=== PATIENT | female | born 1955 | race Caucasian/White ===

== ENCOUNTER 2021-02-24 12:37 | Emergency (ER) | payer OTHER ==
--- NOTE | 2021-02-24 15:07 | RAD REPORT ---
EXAM DESCRIPTION: RAD - Knee Left 3 View - 02/24/2021 3:01 pm CLINICAL HISTORY: PAIN, fall, laceration to anterior left knee COMPARISON: No comparisons FINDINGS: No fracture, dislocation or periosteal reaction.No joint effusion seen. No joint space selvin rowing. Numerous calcifications are present along the lateral margin of the joint line and tibial andie teau. These are unrelated to the current event and likely from old injury. Provided history indicates and anterior soft tissue injury. There are prominent soft tissues anterior to the patella and patell a tendon. No foreign body in the soft tissues. IMPRESSION: Negative left knee for acute finding. Clinical concerns for internal derangement or occult bony injury could be further assessed with MR jyothi alvarado.
[2021-02-24] MEDS ORDERED: LIDOCAINE 1% W/EPI 1:100,000 MDV 20 ML VIAL ONE ×2 (15:19→15:31)
[2021-02-24] MEDS ORDERED: TETANUS & DIPHTHERIA TOX,ADULT 0.5 ML VIAL ONE (15:19)
--- NOTE | 2021-02-24 15:59 | EDPHYS ---
Physician Documentation [facility] Name: Babita Connor Age: 65 yrs Sex: Female : 1955 Arrival Date: 02/24/2021 Time: 12:41 Bed 12 Private MD: Gregory Prakash B ED Physician Paolo Pineda HPI: 02/24 15:00 This 65 yrs old Female presents to ER via Ambulatory with complaints of Fall cp Injury. 15:00 Details of fall: The patient fell from an upright position, while walking, and struck a cp concrete surface. Onset: The symptoms/episode began/occurred just prior to arrival. Associated injuries: The patient sustained injury to the head, contusion, anterior aspect left knee, abrasion, laceration. Severity of symptoms: in the emergency department the symptoms are unchanged, despite home interventions. Patient reports trip and fall while walking causing injury to lower lip and left knee. Patient denies LOC. Historical: - Allergies: 12:49 Sulfa (Sulfonamide Antibiotics); tw2 - Immunization history:: Client reports receiving the 2nd dose of the Covid vaccine, Last tetanus immunization: < 5 years ago 03/2017. - Social history:: Smoking status: . ROS: 15:05 MS/extremity: Positive for abrasion, laceration, pain, swelling, tenderness, of the cp anterior aspect left knee, Negative for decreased range of motion, deformity. 15:05 Constitutional: Negative for body aches, chills, fever. cp 15:05 Neck: Negative for pain with movement, pain at rest, stiffness. 15:05 Cardiovascular: Negative for chest pain. 15:05 Respiratory: Negative for cough, shortness of breath. 15:05 Abdomen/GI: Negative for abdominal pain, nausea, vomiting, diarrhea. 15:05 Back: Negative for pain at rest, pain with movement. 15:05 Skin: Positive for ecchymosis, swelling, of the lower lip. 15:05 Neuro: Negative for altered mental status, headache, loss of consciousness, syncope, weakness. 15:05 All other systems are negative. Exam: 15:10 Constitutional: The patient appears in no acute distress, alert, awake, cp non-diaphoretic, non-toxic, well developed, well nourished. 15:10 Head/face: Noted is ecchymosis, that is mild, of the lower lip, swelling, that is cp mild, tenderness, that is mild, Sinus tenderness, is not appreciated. 15:10 Eyes: Periorbital structures: appear normal, Pupils: equal, round, and reactive to light and accomodation, Extraocular movements: intact throughout, Conjunctiva: normal, no exudate, no injection, Sclera: no appreciated abnormality, Lids and lashes: appear normal, bilaterally. 15:10 ENT: External ear(s): are unremarkable, Nose: is normal, Posterior pharynx: Airway: no evidence of obstruction, patent. 15:10 Neck: C-spine: vertebral tenderness, is not appreciated, crepitus, is not appreciated, ROM/movement: is normal, is supple, without pain, no range of motions limitations. 15:10 Chest/axilla: Inspection: normal. 15:10 Cardiovascular: Rate: normal. 15:10 Respiratory: the patient does not display signs of respiratory distress, Respirations: normal, no use of accessory muscles, no retractions. 15:10 Abdomen/GI: Inspection: abdomen appears normal. 15:10 Back: pain, is absent, ROM is normal. 15:10 Musculoskeletal/extremity: Extremities: grossly normal except: noted in the anterior aspect left knee: abrasion, laceration, pain, swelling, tenderness, There is no evidence of decreased ROM, deformity, ROM: full passive range of motion, in the left knee. 15:10 Neuro: Orientation: to person, place \T\ time. Mentation: is normal, Cerebellar function: is grossly normal, Motor: moves all fours, strength is normal, Sensation: is normal, Gait: is steady, at a normal pace, without difficulty. Vital Signs: 12:48 BP 108 / 65; Pulse 66; Resp 17; Temp 97.9(TE); Pulse Ox 100% on R/A; Weight 54.43 kg tw2 (R); Laceration: 15:56 Wound Repair of 3cm ( 1.2in ) subcutaneous laceration to anterior aspect left knee. cp Linear shaped.. Skin/tissue flap noted.. Distal neuro/vascular/tendon intact. Anesthesia: Wound infiltrated with 8 mls of 1% lidocaine w/ Epi. Wound prep: Moderate cleansing by me, Wound irrigation by me. Skin closed with 5 4-0 Prolene using interrupted sutures and sterile technique. Dressed with Bacitracin. Patient tolerated well. MDM: 14:58 Patient medically screened. [facility] 15:00 Differential diagnosis: closed head injury, contusion, fracture, laceration, multiple cp trauma. 15:58 Data reviewed: vital signs, nurses notes, radiologic studies, plain films. Test cp interpretation: by ED physician or midlevel provider: plain radiologic studies. Response to treatment: the patient's symptoms have markedly improved after treatment, and as a result, I will discharge patient. 02/24 14:03 Order name: XRAY Knee LEFT 3 view; Complete Time: 15:18 cp 02/24 14:03 Order name: Dressing - Wound; Complete Time: 15:31 cp 02/24 14:03 Order name: Gloves, Sterile; Complete Time: 15:32 cp 02/24 14:03 Order name: Setup Suture Tray; Complete Time: 15:32 cp 02/24 15:56 Order name: Dressing - Wound; Complete Time: 16:06 cp Administered Medications: 15:00 Drug: Tetanus-Diphtheria Toxoid Adult 0.5 ml {Supervisor Modern Languages: [email or web address]. Exp: tw2 09/30/2022. Lot #: [id number]. } Route: IM; Site: right deltoid; 19:20 Follow up: Response: No adverse reaction iw 15:32 Drug: Lidocaine-Epinephrine -1%: (1:100,000) 10 ml {Note: administered by BEVERLY Medrano} tr6 Volume: 20 ml; Route: Infiltration; Disposition: 16:05 Chart complete. cp Disposition Summary: 02/24/21 15:59 Discharge Ordered Location: Home cp Problem: new cp Symptoms: have improved cp Condition: Stable cp Diagnosis - Laceration without foreign body of knee - left cp Followup: cp - With: Private Physician - When: 7 - 10 days - Reason: Staple/Suture removal Discharge Instructions: - Discharge Summary Sheet cp - Laceration Care, Adult cp Forms: - Medication Reconciliation Form cp - Thank You Letter cp - Antibiotic Education cp - Prescription Opioid Use cp Prescriptions: - Cephalexin 500 mg Oral Capsule - take 1 capsule by ORAL route every 8 hours for 10 days; 30 capsule; Refills: 0, cp Product Selection Permitted Addendum: 02/27/2021 06:46 Co-signature as Attending Physician, Paolo Pineda MD I agree with the assessment and c baumann plan of care. Signatures: Dispatcher [employer] Paolo Perez MD MD cha Page, Corey, PA PA cp Wise, Tara RN RN tw2 Paola Alcaraz RN RN tr6 Chacha Santamaria RN iw
--- NOTE | 2021-02-24 15:59 | ER ---
Nurse's Notes [facility] Name: Babita Connor Age: 65 yrs Sex: Female : 1955 Arrival Date: 02/24/2021 Time: 12:41 Bed 12 Private MD: Gregory Prakash B Diagnosis: Laceration without foreign body of knee-left Presentation: 02/24 12:48 Chief complaint: Patient states: i tripped and fell about 1130 over a cement block. i tw2 hit my LEFT knee and my face. the left side of my lip is bleeding and my left knee might need stitches. pt denies LOC. Coronavirus screen: At this time, the client does not indicate any symptoms associated with coronavirus-19. Ebola Screen: Patient denies travel to an Ebola-affected area in the 21 days before illness onset. Initial Sepsis Screen: Does the patient meet any 2 criteria? No. Patient's initial sepsis screen is negative. Does the patient have a suspected source of infection? No. Patient's initial sepsis screen is negative. Risk Assessment: Do you want to hurt yourself or someone else? Patient reports no desire to harm self or others. Onset of symptoms was February 24, 2021. 12:48 Method Of Arrival: Ambulatory tw2 12:48 Acuity: NAYANA 4 tw2 12:52 Note pt is ambulatory. has proof of last Tetanus 03/2017. tw2 Triage Assessment: 12:50 General: Appears in no apparent distress. slender, well groomed, Behavior is calm, tw2 cooperative, appropriate for age. Pain: Complains of pain in left knee. Injury Description: Laceration sustained to left knee is clean, jagged, 0.5 to 2.5 cm long, small amount of bleeding noted, secure with non adherent dressing, gauze and secured with coban. was sustained 30-60 minutes ago. a small amount of bleeding noted at this time. Historical: - Allergies: 12:49 Sulfa (Sulfonamide Antibiotics); tw2 - Immunization history:: Client reports receiving the 2nd dose of the Covid vaccine, Last tetanus immunization: < 5 years ago 03/2017. - Social history:: Smoking status: . Screenin:01 Abuse screen: Denies threats or abuse. Denies injuries from another. Nutritional iw screening: No deficits noted. Tuberculosis screening: No symptoms or risk factors identified. Fall Risk Fall in past 12 months (25 points). Assessment: 14:00 General: Appears in no apparent distress. Behavior is calm, cooperative. Pain: iw Complains of pain in left knee. Neuro: Level of Consciousness is awake, alert, obeys commands, Oriented to person, place, time, situation, Moves all extremities. Respiratory: Respiratory effort is even, unlabored, Respiratory pattern is regular. Derm: Injury Description: Laceration sustained to left knee is jagged, 2.6 to 7.5 cm long. 15:54 Reassessment: BEVERLY Mclain sutured pts left knee at bedside. tr6 Vital Signs: 12:48 BP 108 / 65; Pulse 66; Resp 17; Temp 97.9(TE); Pulse Ox 100% on R/A; Weight 54.43 kg tw2 (R); ED Course: 12:41 Patient arrived in ED. mr 12:41 Gregory Prakash MD is Private Physician. mr 12:49 Triage completed. tw2 12:50 Arm band placed on. tw2 13:58 Paolo Mclain PA is PHCP. cp 13:58 Paolo Pineda MD is Attending Physician. cp 14:25 Chacha Santamaria, DANYELL is Primary Nurse. iw 15:00 XRAY Knee LEFT 3 view In Process Unspecified. EDMS 15:54 Patient has correct armband on for positive identification. Bed in low position. Side tr6 rails up X 1. 15:54 No provider procedures requiring assistance completed. tr6 15:54 Patient did not have IV access during this emergency room visit. iw Administered Medications: 15:00 Drug: Tetanus-Diphtheria Toxoid Adult 0.5 ml {Hr Intern: [employer]. Exp: tw2 09/30/2022. Lot #: [id number]. } Route: IM; Site: right deltoid; 19:20 Follow up: Response: No adverse reaction iw 15:32 Drug: Lidocaine-Epinephrine -1%: (1:100,000) 10 ml {Note: administered by BEVERLY Mclain.} tr6 Volume: 20 ml; Route: Infiltration; Outcome: 15:59 Discharge ordered by MD. cp 16:12 Discharged to home ambulatory. iw 16:12 Condition: good 16:12 Discharge instructions given to patient, Instructed on discharge instructions, follow up and referral plans. medication usage, Demonstrated understanding of instructions, follow-up care, medications, Prescriptions given X 1. 16:13 Patient left the ED. iw Signatures: Dispatcher [employer] CYNDYKS Farnaz Esparza Chacha Santamaria, RN RN iw Paolo Mclain PA PA cp Wise, Tara, RN RN tw2 Paola Alcaraz RN RN tr6 Corrections: (The following items were deleted from the chart) 12:52 12:48 Chief complaint: Patient states: i tripped and fell about 1130 over a cement tw2 block. i hit my LEFT knee and my face. the left side of my lip is bleeding and my left knee might need stitches. tw2
[2021-02-24 16:21] VITALS: BP 108/65; TEMP 97.9; O2SAT 100
== END 2021-02-24 16:13 | disposition home or self-care (01) ==
LOC: ER 12:37
PROC: 0HQLXZZ Repair Left Lower Leg Skin, External Approach (ICD-10-PCS; principal; 2021-02-24)
DX: S81.012A Laceration without foreign body, left knee, initial encounter (principal); S09.93XA Unspecified injury of face, initial encounter; Z23 Encounter for immunization; W01.0XXA Fall on same level from slipping, tripping and stumbling without subsequent striking against object, initial encounter
CPT/HCPCS: 90471; 90714; 99283

== ENCOUNTER 2022-01-31 10:21 | Emergency (ER) | payer OTHER ==
[2022-01-31 10:54] LABS: Hematocrit 38.2 % (36.0-45.0); Lymphocytes % 11.7 % (15.3-44.8); MCV 91.8 fL (80-100); MPV 7.3 fL (7.6-11.3); RBC Red Blood Cell Count 4.16 M/uL (3.86-4.86)
[2022-01-31 11:55] LABS: Potassium 4.1 mmol/L (3.5-5.1); Troponin High Sensitivity 11.4 pg/mL (<58.9)
--- NOTE | 2022-01-31 11:56 | RAD REPORT ---
EXAM DESCRIPTION: RAD - Shoulder Right 2 View - 01/31/2022 11:45 am CLINICAL HISTORY: Right shoulder pain FINDINGS: Comminuted mildly displaced fracture distal right clavicle. No dislocation
--- NOTE | 2022-01-31 11:57 | RAD REPORT ---
EXAM DESCRIPTION: Lizz Single View01/31/2022 11:36 am CLINICAL HISTORY: Chest pain COMPARISON: none FINDINGS: Comminuted mildly displaced fracture distal right clavicle Lungs are hyperaerated. The lungs appear clear of acute infiltrate. The heart is normal size
--- NOTE | 2022-01-31 11:57 | RAD REPORT ---
EXAM DESCRIPTION: CT - Head C Spine Mpr Wo Con - 01/31/2022 11:42 am CLINICAL HISTORY: Syncope. Head and neck injury status post fall. Head and neck pain COMPARISON: None. TECHNIQUE: Computed axial tomography of the head and cervical spine was obtained. Sagittal and coronal reconstruction was performed. All CT scans are performed using dose optimization technique as appropriate and may include automated exposure control or mA/KV adjustment according to patient size. FINDINGS: An intracranial bleed is not seen. The ventricles are normal in caliber. An extra-axial fl uid collection is not noted. Fluid right maxillary sinus may indicate acute sinusitis and should be correlated clinically A cervical fracture is not visualized. No dislocation is noted. Spondylosis IMPRESSION: No acute intracranial abnormality is seen. A cervical fracture is not visualized. If the patient continues to have symptoms to suggest intracra nial /spinal cord pathology then MRI would be recommended
[2022-01-31] MEDS ORDERED: LIDOCAINE 1% W/EPI 1:100,000 MDV 20 ML VIAL ONE (12:23)
--- NOTE | 2022-01-31 14:34 | EDPHYS ---
Physician Documentation [facility] Name: Babita Connor Age: 66 yrs Sex: Female : 1955 Arrival Date: 01/31/2022 Time: 10:25 Bed 17 Private MD: ED Physician Quoc Rodarte Historical: - Allergies: 01/31 10:26 Sulfa (Sulfonamide Antibiotics); ll1 10:26 PENICILLINS; ll1 - PMHx: 10:26 Depressive disorder; covid +; breast CA; ll1 - Immunization history:: Client reports receiving the 2nd dose of the Covid vaccine. - Social history:: Smoking status: Patient denies any tobacco usage or history of. Exam: 11:41 ECG was reviewed by the Attending Physician. kdr Vital Signs: 10:26 BP 107 / 62; Pulse 75; Resp 17; Temp 97.9; Pulse Ox 100% on R/A; Weight 51.71 kg; ll1 Height 5 ft. 4 in. (162.56 cm); Pain 4/10; 11:00 BP 95 / 64; Pulse 77; Resp 16; Pulse Ox 99% ; kr3 12:58 BP 113 / 63 Supine; Pulse 73; kr3 12:58 BP 96 / 62 Sitting; Pulse 86; kr3 12:58 kr3 14:00 BP 113 / 69; Pulse 67; Resp 16; Pulse Ox 100% on R/A; kr3 15:46 BP 107 / 69; Pulse 75; Resp 16; Pulse Ox 100% ; kr3 10:26 Body Mass Index 19.57 (51.71 kg, 162.56 cm) ll1 12:58 feels to nausea and dizzy to complete vitals kr3 NIH Stroke Scale Scores: 10:26 NIHSS Score: 0 ll1 Laceration: 14:11 Wound Repair of 3.5cm ( 1.4in ) subcutaneous laceration to right denominational. Irregularly cp shaped.. Distal neuro/vascular/tendon intact. Anesthesia: Wound infiltrated with 4 mls of 1% lidocaine w/ Epi. Wound prep: Simple cleansing by me. Skin closed with 5 5-0 Prolene using interrupted sutures and sterile technique. Dressed with 4x4's. Patient tolerated well. MDM: 14:33 Patient medically screened. kdr 01/31 10:27 Order name: Basic Metabolic Panel; Complete Time: 12:07 kdr 01/31 10:27 Order name: CBC with Diff; Complete Time: 12:07 kdr 01/31 10:27 Order name: Troponin HS; Complete Time: 12:07 kdr 01/31 10:27 Order name: XRAY Chest (1 view); Complete Time: 12:07 kdr 01/31 11:18 Order name: CT Head C Spine kdr 01/31 11:18 Order name: Shoulder Right (2 View) XRAY; Complete Time: 12:07 kdr 01/31 10:27 Order name: EKG; Complete Time: 10:27 kdr 01/31 10:27 Order name: Cardiac monitoring; Complete Time: 10:47 kdr 01/31 10:27 Order name: EKG - Nurse/Tech; Complete Time: 10:47 kdr 01/31 10:27 Order name: IV Saline Lock; Complete Time: 10:29 kdr 01/31 10:27 Order name: Labs collected and sent; Complete Time: 10:47 kdr 01/31 11:22 Order name: Head C Spine Mpr Wo Con; Complete Time: 12:07 EDMS 01/31 10:27 Order name: O2 Per Protocol; Complete Time: 10:47 kdr 01/31 10:27 Order name: O2 Sat Monitoring; Complete Time: 10:47 kdr 01/31 11:18 Order name: Misc. Order: Clean head wound; Complete Time: 11:24 kdr 01/31 11:18 Order name: Orthostatic Blood Pressure; Complete Time: 13:11 kdr 01/31 13:21 Order name: Sling: Right arm; Complete Time: 13:35 kdr EC:41 Rate is 79 beats/min. Rhythm is regular, Sinus Rhythm with No ectopy. QRS Opal is kdr Normal. NH interval is normal. QRS interval is normal. QT interval is normal. Clinical impression: NSR w/ Non-specific ST/T Changes. Administered Medications: 11:25 Drug: NS 0.9% 500 ml Route: IV; Rate: bolus; Site: left antecubital; kr3 16:04 Follow up: Response: No adverse reaction; IV Status: Completed infusion; IV Intake: kr3 500ml 15:38 Drug: Ondansetron 4 mg Route: PO; kr3 16:04 Follow up: Response: No adverse reaction kr3 Point of Care Testing: Blood Glucose: 16:03 Blood Glucose: 124 mg/dL; kr3 Ranges: Critical Glucose Levels:Adult <50 mg/dl or >400 mg/dl <40 mg/dl or >180 mg/dl Disposition Summary: 01/31/22 14:33 Discharge Ordered Location: Home kdr Problem: an acute exacerbation kdr Symptoms: have improved kdr Condition: Stable kdr Diagnosis - Syncope, head injury, facial laceration, right clavicle fracture kdr Followup: kdr - With: Private Physician - When: 2 - 3 days - Reason: Wound Recheck, If symptoms return, Further diagnostic work-up, Recheck today's complaints, Continuance of care, Re-evaluation by your physician Discharge Instructions: - Discharge Summary Sheet kdr - Orthostatic Hypotension kdr - Facial Laceration, [id number] kdr - Sutured Wound Care, [id number] kdr Forms: - Medication Reconciliation Form kdr - Thank You Letter kdr - Prescription Opioid Use kdr Prescriptions: - Tylenol-Codeine #3 300 mg-30 mg Oral - take 1 tablet by ORAL route every 4-6 hours As needed; 16 tablet; Refills: 0, kdr Product Selection Permitted NIH Stroke Scale - NIH Stroke Score Date: 01/31/2022 Time: 10:26 Total Score = 0 1a. Level of Consciousness (LOC) - 0(Alert) 1b. Level of Consciousness (LOC) (Month \T\ Age) - 0(Both) 1c. LOC Commands (Open \T\ Closes Eyes/Paver) - 0(Both) 2. Best Gaze (Lateral Gaze Paresis) - 0(Normal) 3. Visual Field Loss - 0(No visual loss) 4. Facial Palsy - 0(Normal) 5a. Left Arm: Motor (10-second hold) - 0(No drift) 5b. Right Arm: Motor (10-second hold) - 0(No drift) 6a. Left Leg: Motor (5-second hold - always test supine) - 0(No drift) 6b. Right Leg: Motor (5-second hold - always test supine) - 0(No drift) 7. Limb Ataxia (finger/nose \T\ heel/harris - test with eyes open) - 0(Absent) 8. Sensory Loss (pinprick arms/legs/face) - 0(Normal) 9. Best Language: Aphasia (description/naming/reading) - 0(No aphasia) 10. Dysarthria (speech clarity - read or repeat words) - 0(Normal) 11. Extinction and Inattention (visual/tactile/auditory/spatial/personal) - 0(No abnormality) Initials: ll1 Signatures: Dispatcher [employer] Quoc Diallo MD MD kdr Page, Corey, PA PA cp Lewis, Lynsay, DANYELL RN ll1 Padmini Dias RN RN kr3
--- NOTE | 2022-01-31 14:34 | ER ---
Nurse's Notes [facility] Name: Babita Connor Age: 66 yrs Sex: Female : 1955 Arrival Date: 01/31/2022 Time: 10:25 Bed 17 Private MD: Diagnosis: Syncope, head injury, facial laceration, right clavicle fracture Presentation: 01/31 10:26 Chief complaint: Patient states: Syncopal episode just INTERNATIONAL LOGISTICS ANALYST. Has R shoulder pain since. ll1 Laceration R side of head. Skin tear R FA. [place] dizzy before syncopal event. Coronavirus screen: Vaccine status: Patient reports receiving the 2nd dose of the covid vaccine. Client denies travel out of the [place] in the last 14 days. cough unrelated to allergies, fatigue, Client presents with at least one sign or symptom that may indicate coronavirus-19. Standard/surgical mask placed on the client. Ebola Screen: Patient denies travel to an Ebola-affected area in the 21 days before illness onset. Initial Sepsis Screen: Does the patient meet any 2 criteria? No. Patient's initial sepsis screen is negative. Does the patient have a suspected source of infection? Yes: Productive cough/pneumonia. Risk Assessment: Do you want to hurt yourself or someone else? Patient reports no desire to harm self or others. Onset of symptoms was January 31, 2022. 10:26 Method Of Arrival: EMS ll1 10:26 Acuity: NAYANA 2 ll1 Triage Assessment: 10:30 General: Appears uncomfortable, Behavior is calm, cooperative, appropriate for age. ll1 Pain: Complains of pain in R shoulder Pain currently is 4 out of 10 on a pain scale. Quality of pain is described as aching, Pain began 30 min ago. Neuro: Reports a syncopal episode. Neuro: Reports dizziness. GI: Reports nausea, vomiting. Derm: laceration to R side of head. Skin tear R FA. Musculoskeletal: Circulation, motion, and sensation intact. Capillary refill < 3 seconds. Historical: - Allergies: 10:26 Sulfa (Sulfonamide Antibiotics); ll1 10:26 PENICILLINS; ll1 - PMHx: 10:26 Depressive disorder; covid +; breast CA; ll1 - Immunization history:: Client reports receiving the 2nd dose of the Covid vaccine. - Social history:: Smoking status: Patient denies any tobacco usage or history of. Screenin:32 Abuse screen: Denies threats or abuse. Nutritional screening: No deficits noted. ll1 Tuberculosis screening: No symptoms or risk factors identified. Fall Risk Fall in past 12 months (25 points). IV access (20 points). Gait- Weak (10 pts.). Total Pedersen Fall Scale indicates High Risk Score (45 or more points). Fall prevention measures have been instituted. Side Rails Up X 2 Placed Close to Nursing Station Frequent Obs/Assessments Occuring Family Present and informed to notify staff if the need to leave the bedside As available patient and family educated on Fall Prevention Program and Strategies. Assessment: 10:50 General: Appears comfortable, Behavior is calm, cooperative, quiet, Reports covid kr3 positive since 01-22, dizziness and headache. Neuro: Reports dizziness, a syncopal episode weakness. Neuro: Level of Consciousness is awake, alert, obeys commands, Oriented to person, place, time, situation, Appropriate for age Speech is normal, Facial symmetry appears normal, Pupils are PERRLA. Cardiovascular: Rhythm is regular. Derm: laceration to right forehead, skin tear to right forearm. 13:22 Pain: Complains of pain in right shoulder Pain currently is 7 out of 10 on a pain kr3 scale. Quality of pain is described as aching, Pain began 1 hour ago. 14:20 Reassessment: No changes from previously documented assessment. Patient and/or family kr3 updated on plan of care and expected duration. Pain level reassessed. Vital Signs: 10:26 BP 107 / 62; Pulse 75; Resp 17; Temp 97.9; Pulse Ox 100% on R/A; Weight 51.71 kg; ll1 Height 5 ft. 4 in. (162.56 cm); Pain 4/10; 11:00 BP 95 / 64; Pulse 77; Resp 16; Pulse Ox 99% ; kr3 12:58 BP 113 / 63 Supine; Pulse 73; kr3 12:58 BP 96 / 62 Sitting; Pulse 86; kr3 12:58 kr3 14:00 BP 113 / 69; Pulse 67; Resp 16; Pulse Ox 100% on R/A; kr3 15:46 BP 107 / 69; Pulse 75; Resp 16; Pulse Ox 100% ; kr3 10:26 Body Mass Index 19.57 (51.71 kg, 162.56 cm) ll1 12:58 feels to nausea and dizzy to complete vitals kr3 NIH Stroke Scale Scores: 10:26 NIHSS Score: 0 ll1 ED Course: 10:25 Patient arrived in ED. ll1 10:25 Arm band placed on Patient placed in an exam room, on a stretcher. ll1 10:26 Quoc Rodarte MD is Attending Physician. kdr 10:28 Padmini Dias RN is Primary Nurse. kr3 10:30 Triage completed. ll1 10:30 Maintain EMS IV. Dressing intact. Good blood return noted. Site clean \T\ dry. Gauge \T\ ll 1 site: 20 G L AC. 10:33 Patient has correct armband on for positive identification. Bed in low position. Call ll1 light in reach. Side rails up X2. Client placed on continuous cardiac and pulse oximetry monitoring. NIBP monitoring applied. 10:49 Basic Metabolic Panel Sent. kr3 10:50 CBC with Diff Sent. kr3 10:50 Troponin HS Sent. kr3 11:38 XRAY Chest (1 view) In Process Unspecified. EDMS 11:44 Head C Spine Mpr Wo Con In Process Unspecified. EDMS 11:47 Shoulder Right (2 View) XRAY In Process Unspecified. EDMS 15:38 No provider procedures requiring assistance completed. IV discontinued, intact, kr3 bleeding controlled, No redness/swelling at site. Pressure dressing applied. Administered Medications: 11:25 Drug: NS 0.9% 500 ml Route: IV; Rate: bolus; Site: left antecubital; kr3 16:04 Follow up: Response: No adverse reaction; IV Status: Completed infusion; IV Intake: kr3 500ml 15:38 Drug: Ondansetron 4 mg Route: PO; kr3 16:04 Follow up: Response: No adverse reaction kr3 Medication: 10:33 VIS not applicable for this client. ll1 Point of Care Testing: Blood Glucose: 16:03 Blood Glucose: 124 mg/dL; kr3 Ranges: Intake: 16:04 IV: 500ml; Total: 500ml. kr3 Outcome: 14:33 Discharge ordered by . kdr 16:00 Discharged to home via wheelchair. kr3 16:00 Condition: stable 16:00 Discharge instructions given to patient, Instructed on discharge instructions, follow up and referral plans. medication usage, Demonstrated understanding of instructions, follow-up care, medications, Prescriptions given X 1. 16:06 Patient left the ED. kr3 NIH Stroke Scale - NIH Stroke Score Date: 01/31/2022 Time: 10:26 Total Score = 0 1a. Level of Consciousness (LOC) - 0(Alert) 1b. Level of Consciousness (LOC) (Month \T\ Age) - 0(Both) 1c. LOC Commands (Open \T\ Closes Eyes/General Farm Hand) - 0(Both) 2. Best Gaze (Lateral Gaze Paresis) - 0(Normal) 3. Visual Field Loss - 0(No visual loss) 4. Facial Palsy - 0(Normal) 5a. Left Arm: Motor (10-second hold) - 0(No drift) 5b. Right Arm: Motor (10-second hold) - 0(No drift) 6a. Left Leg: Motor (5-second hold - always test supine) - 0(No drift) 6b. Right Leg: Motor (5-second hold - always test supine) - 0(No drift) 7. Limb Ataxia (finger/nose \T\ heel/harris - test with eyes open) - 0(Absent) 8. Sensory Loss (pinprick arms/legs/face) - 0(Normal) 9. Best Language: Aphasia (description/naming/reading) - 0(No aphasia) 10. Dysarthria (speech clarity - read or repeat words) - 0(Normal) 11. Extinction and Inattention (visual/tactile/auditory/spatial/personal) - 0(No abnormality) Initials: ll1 Signatures: Dispatcher [employer] EDMS Quoc Rodarte MD MD [facility] Gregory Iglesias RN RN ll1 Padmini Dias RN RN kr3 Corrections: (The following items were deleted from the chart) 15:46 14:00 BP 107 / 69; Pulse 75bpm; Resp 16bpm; Pulse Ox 100% RA; kr3 kr3
[2022-01-31] MEDS ORDERED: ONDANSETRON 4 MG (ODT) TAB ONE (15:43)
[2022-01-31 19:29] VITALS: TEMP 97.9
[2022-01-31 19:33] VITALS: O2SAT 100
[2022-01-31 19:35] VITALS: BP 107/69
--- NOTE | 2022-02-01 13:55 | EKG ---
Test Date: 2022-01-31 Test Time: 10:47:20 Paper Ruler: SHARONA MEASUREMENT RESULTS: Intervals: Rate: 79 NC: 154 QRSD: 68 QT: 398 QTc: 456 [place]: P: 69 NC: 154 QRS: -61 T: 63 INTERPRETIVE STATEMENTS: Normal sinus rhythm Left anterior fascicular block Nonspecific ST abnormality Abnormal ECG No previous ECG available for comparison Electronically Signed On 02-01-22 13:51:44 CDT by Luc Garcia
== END 2022-01-31 16:06 | disposition home or self-care (01) ==
LOC: ER 10:21
PROC: 0JQ10ZZ Repair Face Subcutaneous Tissue and Fascia, Open Approach (ICD-10-PCS; principal; 2022-01-31)
DX: R55 Syncope and collapse (principal); S01.81XA Laceration without foreign body of other part of head, initial encounter; S51.811A Laceration without foreign body of right forearm, initial encounter; S42.031A Displaced fracture of lateral end of right clavicle, initial encounter for closed fracture; U07.1 COVID-19; Z88.0 Allergy status to penicillin; Z88.2 Allergy status to sulfonamides; Z85.3 Personal history of malignant neoplasm of breast
CPT/HCPCS: 85025; 80048; 36415; 84484; 70450; 72125; 71045; 73030; 12013; Q0162; 93005

== ENCOUNTER 2022-01-31 17:10 | Observation (INO) | payer OTHER ==
[2022-01-31] MEDS ORDERED: NA CHLORIDE 0.9% 1,000 ML ONE (20:10)
[2022-01-31 20:16] LABS: Absolute Lymphocytes (CBC) 0.8 K/uL (0.7-4.9); Hematocrit 35.8 % (36.0-45.0); Lymphocytes % 7.3 % (15.3-44.8); MCV 89.8 fL (80-100); MPV 7.2 fL (7.6-11.3); RBC Red Blood Cell Count 3.98 M/uL (3.86-4.86)
[2022-01-31 20:25] LABS: Protime INR 1.14
--- NOTE | 2022-01-31 20:35 | ER ---
Nurse's Notes [facility] Name: Babita Connor Age: 66 yrs Sex: Female : 1955 Arrival Date: 01/31/2022 Time: 17:27 Bed 14 Private MD: Diagnosis: Syncope, recurrent;Dehydration Presentation: 01/31 17:15 Chief complaint: EMS states: Patient just returned home from hospital when she got out j9 the car and had another syncopal event- was there to catch her fall so patient did not hit the ground. Coronavirus screen: Vaccine status: Patient reports receiving the 2nd dose of the covid vaccine. Ebola Screen: Patient negative for fever greater than or equal to 101.5 degrees Fahrenheit, and additional compatible Ebola Virus Disease symptoms Patient denies exposure to infectious person. Patient denies travel to an Ebola-affected area in the 21 days before illness onset. Initial Sepsis Screen: Does the patient meet any 2 criteria? No. Patient's initial sepsis screen is negative. Does the patient have a suspected source of infection? No. Patient's initial sepsis screen is negative. Risk Assessment: Do you want to hurt yourself or someone else? Patient reports no desire to harm self or others. Onset of symptoms was January 31, 2022. 17:15 Method Of Arrival: EMS: [facility] j9 17:15 Acuity: NAYANA 3 jg9 Triage Assessment: 17:15 General: Appears in no apparent distress. Behavior is calm, cooperative. Pain: jg9 Complains of pain in right arm-r shoulder/clavical. Neuro: Reports a syncopal episode. Historical: - Allergies: 17:39 PENICILLINS; jg9 17:39 Sulfa (Sulfonamide Antibiotics); jg9 - PMHx: 17:39 BREAST CA; covid +; depressive disorder; jg9 - Immunization history:: Adult Immunizations up to date. - Social history:: Smoking status: Patient denies any tobacco usage or history of. - Family history:: not pertinent. - Hospitalizations: : No recent hospitalization is reported. Screenin:40 Abuse screen: Denies threats or abuse. Denies injuries from another. Nutritional jg9 screening: No deficits noted. Tuberculosis screening: No symptoms or risk factors identified. Fall Risk Fall in past 12 months (25 points). Assessment: 17:41 Cardiovascular: Rhythm is sinus rhythm. jg9 19:32 Reassessment: Patient appears in no apparent distress at this time. Patient is alert, ke1 oriented x 3, equal unlabored respirations, skin warm/dry/pink. Neuro: Level of Consciousness is awake, alert, Oriented to person, place, time, situation, Press Operator Heavy Duty are equal bilaterally Moves all extremities. Gait is steady, Speech is normal, Facial symmetry appears normal, Pupils are PERRLA, Intact. 20:00 Musculoskeletal: Capillary refill < 3 seconds, Range of motion: intact in all ke1 extremities. 21:00 Reassessment: No changes from previously documented assessment. Patient and/or family ke1 updated on plan of care and expected duration. Pain level reassessed. Patient is alert, oriented x 3, equal unlabored respirations, skin warm/dry/pink. 22:00 Reassessment: No changes from previously documented assessment. Patient denies pain at ke1 this time. 23:00 Reassessment: No changes from previously documented assessment. Patient denies pain at ke1 this time. 02/01 01:20 Reassessment: report called and given to Chacha CHILD. ke1 Vital Signs: 01/31 17:15 BP 107 / 67; Pulse 80; Resp 18 S; Temp 97.7(T); Pulse Ox 96% on R/A; Weight 51.26 kg; jg9 Height 5 ft. 4 in. (162.56 cm); Pain 8/10; 22:45 BP 143 / 83 Supine; Pulse 75; Resp 25; Pulse Ox 99% ; ke1 22:48 BP 127 / 83 Sitting; Pulse 91; Resp 24; Pulse Ox 100% ; ke1 22:52 BP 98 / 72; Pulse 115; Resp 20; Pulse Ox 100% ; ke1 02/01 01:21 BP 146 / 77; Pulse 74; Resp 18; Temp 98.6; Pulse Ox 99% on R/A; Pain 0/10; ke1 01/31 17:15 Body Mass Index 19.40 (51.26 kg, 162.56 cm) jg9 ED Course: 01/31 17:27 Patient arrived in ED. ss 17:36 Ella Lovett, RN is Primary Nurse. jg9 17:39 Triage completed. jg9 17:40 Arm band placed on right wrist. jg9 17:41 Patient has correct armband on for positive identification. Bed in low position. Call jg9 light in reach. Side rails up X 1. 19:03 Sukhjinder Loving MD is Attending Physician. rn 20:03 SARS-COV-2 RT PCR (Document "Date of Onset" if Symptomatic) Sent. ke1 20:03 Inserted saline lock: 22 gauge in left forearm, using aseptic technique. ke1 20:04 Maintain EMS IV. Site clean \\T\\ dry. Gauge \\T\\ site: 20 g lac. ke 1 20:34 Piter Trujillo MD is Hospitalizing Provider. rn 21:33 Chest For PE Angio CT In Process Unspecified. EDMS 21:49 Notified ED physician of a critical lab result(s). covid pos. kd3 02/01 01:20 No provider procedures requiring assistance completed. Patient admitted, IV remains in ke1 place. Administered Medications: 01/31 20:16 Drug: NS 0.9% 1000 ml Route: IV; Rate: 1000 ml; Site: left antecubital; ke1 02/01 00:25 Drug: NS 0.9% 500 ml Route: IV; Rate: bolus; Site: left antecubital; ke Medication: 01:21 VIS not applicable for this client. ke1 Point of Care Testin/06 17:41 n/a jg9 Ranges: Outcome: 20:35 Decision to Hospitalize by Provider. rn 02/01 01:20 Admitted to Med/surg ke1 Condition: stable Instructed on the need for admit. 01:39 Patient left the ED. formerly [facility] Signatures: Dispatcher [employer] EDMS Sukhjinder Loving MD MD rn Smirch, Shelby RN RN Maria Luz Stone RN RN kd3 Ella Lovett RN RN jg9 Babak Conway RN RN ke1
--- NOTE | 2022-01-31 20:35 | EDPHYS ---
Physician Documentation [facility] Name: Babita Connor Age: 66 yrs Sex: Female : 1955 Arrival Date: 01/31/2022 Time: 17:27 Bed 14 Private MD: ED Physician Sukhjinder Loving HPI: 01/31 19:46 This 66 yrs old Female presents to ER via EMS with complaints of Syncope. rn 19:46 The patient has experienced syncope. Onset: The symptoms/episode began/occurred just rn prior to arrival. Duration: The patient has had multiple episodes. Context: the episode(s) was witnessed, by a significant other, occurred outdoors, occurred while the patient was standing, Just prior to the episode the patient experienced lightheadedness. Associated injury: The patient did not suffer any apparent associated injury. Associated signs and symptoms: Pertinent positives: headache, lightheadedness, nausea, weakness, Pertinent negatives: abdominal pain, chest pain, seizure. Current symptoms: Currently, the patient is not experiencing any symptoms. The patient has experienced a previous episode. The patient has been recently seen at the [facility] Emergency Department. Pt reports got discharged earlier today from ER after first syncopal episode, went home, getting out of car, felt lightheaded and passed out again. Tested + for COVID 9-10 days ago, feels weak all over, no focal weakness, no chest pain or sob. Also with breast cancer. Reports diarrhea, nausea, decreased appetite.. Historical: - Allergies: 17:39 PENICILLINS; jg9 17:39 Sulfa (Sulfonamide Antibiotics); jg9 - PMHx: 17:39 BREAST CA; covid +; depressive disorder; jg9 - Immunization history:: Adult Immunizations up to date. - Social history:: Smoking status: Patient denies any tobacco usage or history of. - Family history:: not pertinent. - Hospitalizations: : No recent hospitalization is reported. ROS: 19:46 Constitutional: Negative for fever, chills, and weight loss, Eyes: Negative for injury, rn pain, redness, and discharge, Neck: Negative for injury, pain, and swelling, Cardiovascular: Negative for chest pain, palpitations, and edema, Respiratory: Negative for shortness of breath, cough, wheezing, and pleuritic chest pain, Abdomen/GI: Negative for abdominal pain, vomiting, and constipation, Back: Negative for injury and pain, MS/Extremity: Negative for injury and deformity, Skin: Negative for injury, rash, and discoloration, Neuro: Negative for numbness, tingling, and seizure. Exam: 19:46 Constitutional: This is a well developed, well nourished patient who is awake, alert, rn and in no acute distress. Head/Face: Normocephalic, atraumatic. Eyes: Periorbital areas with no swelling, redness, or edema. ENT: dry MM Cardiovascular: Regular rate and rhythm. No pulse deficits. Respiratory: No increased work of breathing, no retractions or nasal flaring. Abdomen/GI: Soft, non-tender Skin: Warm, dry MS/ Extremity: Pulses equal, no cyanosis. Neurovascular intact. Full, normal range of motion. Equal circumference. Neuro: Awake and alert, GCS 15, oriented to person, place, time, and situation. Cranial nerves II-XII grossly intact. Motor strength 4/5 in all extremities. Sensory grossly intact. Vital Signs: 17:15 BP 107 / 67; Pulse 80; Resp 18 S; Temp 97.7(T); Pulse Ox 96% on R/A; Weight 51.26 kg; jg9 Height 5 ft. 4 in. (162.56 cm); Pain 8/10; 22:45 BP 143 / 83 Supine; Pulse 75; Resp 25; Pulse Ox 99% ; ke1 22:48 BP 127 / 83 Sitting; Pulse 91; Resp 24; Pulse Ox 100% ; ke1 22:52 BP 98 / 72; Pulse 115; Resp 20; Pulse Ox 100% ; ke1 02/01 01:21 BP 146 / 77; Pulse 74; Resp 18; Temp 98.6; Pulse Ox 99% on R/A; Pain 0/10; ke1 01/31 17:15 Body Mass Index 19.40 (51.26 kg, 162.56 cm) [facility] MDM: 01/31 19:03 Patient medically screened. rn 20:34 Differential Diagnosis: idiopathic syncope, vasovagal episode, dehydration, COVID, rn viral syndrome. Data reviewed: vital signs, nurses notes, lab test result(s), EKG, radiologic studies, plain films, and as a result, I will admit patient. Counseling: I had a detailed discussion with the patient and/or guardian regarding: the historical points, exam findings, and any diagnostic results supporting the discharge/admit diagnosis, lab results, radiology results, the need for further work-up and treatment in the hospital. Response to treatment: the patient's symptoms have mildly improved after treatment, and as a result, I will admit patient. Admission orders: after a detailed discussion of the patient's condition and case, the admit orders are written by me. 01/31 19:17 Order name: SARS-COV-2 RT PCR (Document "Date of Onset" if Symptomatic); Complete Time: rn 21:52 01/31 19:17 Order name: BMP; Complete Time: 20:49 rn 01/31 19:17 Order name: C-Reactive Protein; Complete Time: 20:49 rn 01/31 19:17 Order name: CBC with Diff; Complete Time: 20:34 rn 01/31 19:17 Order name: D-Dimer; Complete Time: 20:49 rn 01/31 19:17 Order name: Ferritin; Complete Time: 20:49 rn 01/31 19:17 Order name: LFT's; Complete Time: 20:49 rn 01/31 19:17 Order name: Lactate; Complete Time: 20:49 rn 01/31 19:17 Order name: PT-INR; Complete Time: 20:49 rn 01/31 19:17 Order name: Procalcitonin; Complete Time: 21:13 rn 01/31 19:17 Order name: Ptt, Activated; Complete Time: 20:49 rn 01/31 19:17 Order name: Troponin HS; Complete Time: 20:49 rn 02/01 00:47 Order name: Urine Dipstick-Ancillary EDMS 01/31 19:17 Order name: IV Start; Complete Time: 20:03 rn 01/31 19:17 Order name: EKG; Complete Time: 19:18 rn 01/31 19:17 Order name: Cardiac monitoring; Complete Time: 20:03 rn 01/31 19:17 Order name: Droplet/Contact Precautions; Complete Time: 20:16 rn 01/31 19:17 Order name: EKG - Nurse/Tech; Complete Time: 22:53 rn 01/31 19:17 Order name: Labs collected and sent; Complete Time: 20:03 rn 01/31 19:17 Order name: O2 Per Protocol; Complete Time: 20:03 rn 01/31 19:17 Order name: O2 Sat Monitoring; Complete Time: 20:03 rn 01/31 20:34 Order name: Orthostatics; Complete Time: 22:53 la1 01/31 20:53 Order name: Chest For PE Angio CT; Complete Time: 21:45 la1 Administered Medications: 20:16 Drug: NS 0.9% 1000 ml Route: IV; Rate: 1000 ml; Site: left antecubital; ke1 02/01 00:25 Drug: NS 0.9% 500 ml Route: IV; Rate: bolus; Site: left antecubital; ke1 Point of Care Testin/06 17:41 n/a jg9 Ranges: Critical Glucose Levels:Adult <50 mg/dl or >400 mg/dl <40 mg/dl or >180 mg/dl Disposition Summary: 01/31/22 20:35 Hospitalization Ordered Hospitalization Status: Observation rn Provider: Piter Trujillo rn Location: Telemetry/MedSurg (observation) rn Condition: Stable rn Problem: an ongoing problem rn Symptoms: have improved rn Bed/Room Type: Standard rn Room Assignment: 223(01/31/22 22:38) cg Diagnosis - Syncope, recurrent rn - Dehydration rn Forms: - Medication Reconciliation Form rn - SBAR form rn Signatures: Dispatcher [employer] EDMS Sukhjinder Loving MD MD rn Attema, Lee, ETL DATABASE DEVELOPER-C ETL DATABASE DEVELOPER-Cla1 Jyoti Brown RN RN Ella Chery RN RN jg9 Babak Conway RN RN ke1 Corrections: (The following items were deleted from the chart) 19:40 19:18 Chest Single View+RAD.RAD.BRZ ordered. EDWY EDMS 22:38 20:35 rn cg
[2022-01-31 20:36] LABS: AST/SGOT 16 U/L (15-37); Albumin 3.3 g/dL (3.4-5.0); Alkaline Phosphatase 42 U/L (45-117); BUN Blood Urea Nitrogen 20 mg/dL (7-18); Bicarbonate 26 mmol/L (21-32); Bilirubin Direct 0.2 mg/dL (0-0.2); Bilirubin Total 0.6 mg/dL (0.2-1.0); Ferritin 262.5 ng/mL (8-388); Glomerular Filtration Rate 66 ml/min (=/>90); Glucose Level 134 mg/dL (74-106); Potassium 3.9 mmol/L (3.5-5.1); Protein, Total 6.1 g/dL (6.4-8.2); Sodium Level 138 mmol/L (136-145); Troponin High Sensitivity 19.1 pg/mL (<58.9)
[2022-01-31 20:39] LABS: ALT/SGPT 28 U/L (12-78); C-Reactive Protein < 2.90 mg/L (<3.00)
--- NOTE | 2022-01-31 21:41 | RAD REPORT ---
EXAM DESCRIPTION: CT - Chest For Pe Angio - 01/31/2022 9:31 pm CLINICAL HISTORY: Chest pain. Pulmonary embolism (PE) suspected, positive D-dimer COMPARISON: Shoulder Right 2 View dated 01/31/2022 TECHNIQUE: CT angiogram of the pulmonary arteries was performed with MIP. All CT scans are performed using dose optimization technique as appropriate and may include automated exposure control or mA/KV adjustment according to patient size. FINDINGS: No evidence of pulmonary thromboembolism. No acute aortic finding demonstrated. Mild atelectasis is seen in both posterior lung bases. No focal infiltrate. No significant pericardial or pleural fluid. There is a fracture of distal right clavicle seen with little displacement. The is also a fracture of posterior right fourth rib with slight displacement. Fracture of the lateral right fifth rib also pr esent. IMPRESSION: No evidence of pulmonary thromboembolism. Fracture of the distal right clavicle with little displacement. Fracture of the posterior right fourth rib. Fracture of the lateral right fifth rib.
--- NOTE | 2022-01-31 22:05 | P.HP ---
Certification for Inpatient Patient admitted to: Observation With expected LOS: <2 Midnights Patient will require the following post-hospital care: None Practitioner: I am a practitioner with admitting privileges, knowledge of patient current condition, hospital course, and medical plan of care. Services: Services provided to patient in accordance with Admission requirements found in Title 42 Section 412.3 of the Code of Federal Regulations <Navjot Pham - Last Filed: 01/31/22 21:58> Patient History Date of Service: 01/31/22 Reason for admission: Syncope History of Present Illness: 66-year-old female with history of breast cancer presents to the emergency department for syncope. She has had 2 syncopal episodes today the first 1 this morning after getting out of bed she says she felt very lightheaded dizzy and passed out on the bathroom floor hitting her head and breaking her right clavicle. Patient was evaluated in the emergency department at that time her labs were unremarkable and she was feeling better, she was discharged home after arriving home she had a second syncopal episode this time after getting out of the car. Patient has been COVID-positive since January 22 with progressive malaise, weakness since then. D-dimer was obtained during her second ED visit which was significantly elevated 7117 CT PE protocol was negative for pulmonary embolism but did demonstrate fractures of the posterior right fourth and lateral right fifth ribs. Given second syncopal episode ED provider was just admitted observation for syncope. Patient reports that she did have an episode of syncope in october of this year and had a workup from her PCP with echo and carotid US which she reports were normal. She also reports her normal BP is around 90/60. - Past Medical/Surgical History -: Breast Cancer -: none Psychosocial/ Personal History: Retired teacher, lives at home with family - Family History Sister Notes: RA - Social History Smoking Status: Never smoker Alcohol use: No CD- Drugs: No Caffeine use: Yes Place of Residence: Home <Navjot Pham - Last Filed: 01/31/22 21:58> Date of Service: 02/01/22 <Piter Trujillo - Last Filed: 02/01/22 08:08> Review of Systems 10-point ROS is otherwise unremarkable General: Weakness, Malaise Cardiovascular: As per HPI <Navjot Pham - Last Filed: 01/31/22 21:58> Physical Examination - Physical Exam General: Alert, In no apparent distress, Oriented x3 HEENT: Atraumatic, PERRLA, Other (MM DRY), EOMI, Sclerae nonicteric Neck: Supple, 2+ carotid pulse no bruit, No LAD, Without JVD or thyroid abnormality Respiratory: Clear to auscultation bilaterally, Normal air movement Cardiovascular: Regular rate/rhythm, Normal S1 S2 Gastrointestinal: Normal bowel sounds, No tenderness Musculoskeletal: No tenderness Integumentary: No rashes Neurological: Normal speech, Normal strength at 5/5 x4 extr, Normal tone, Normal affect - Studies Laboratory Data (last 24 hrs) 01/31/22 19:57: PT 12.6 H, INR 1.14, APTT 26.8 01/31/22 19:57: WBC 11.4 H D, Hgb 12.4, Hct 35.8 L, Plt Count 371 01/31/22 19:57: Sodium 138, Potassium 3.9, BUN 20 H, Creatinine 0.95, Glucose 134 H, Total Bilirubin 0.6, AST 16, ALT 28, Alkaline Phosphatase 42 L <Navjot Pham - Last Filed: 01/31/22 21:58> - Studies Laboratory Data (last 24 hrs) 01/31/22 19:57: PT 12.6 H, INR 1.14, APTT 26.8 01/31/22 19:57: WBC 11.4 H D, Hgb 12.4, Hct 35.8 L, Plt Count 371 01/31/22 19:57: Sodium 138, Potassium 3.9, BUN 20 H, Creatinine 0.95, Glucose 134 H, Total Bilirubin 0.6, AST 16, ALT 28, Alkaline Phosphatase 42 L <Piter Trujillo - Last Filed: 02/01/22 08:08> Assessment and Plan - Plan Assessment: Syncope COVID-19 positive Breast cancer Right fourth/fifth rib fractures Right Clavicular fracture Plan: Syncope: Patient with malaise, poor oral intake over the course of the last week or 2 while dealing with COVID, both episodes of syncope occurred with position changes suspect orthostatic hypotension. Orthostatic vital signs ordered, IV fluids to be given throughout the evening with repeat orthostatics in the morning. Patient CT scan of her head during her earlier ER visit during her earlier today which was negative, D-dimer was elevated but CT PE protocol is negative for pulmonary embolism. Pt also had syncope workup with her PCP in October with normal Echo and carotid doppler per patient. COVID-19 positive: Symptoms of malaise, fatigue, anorexia. No respiratory sx reported. monitor 02. Breast cancer: Scheduled for OP lumpectomy Right fourth/fifth rib fractures, Right Clavicular fracture: Incentive spirometry, PRN pain meds, sling in place, OP follow up with ortho. DVT PPX: Lovenox Code status: Full Discharge Plan: Home Plan to discharge in: 24 Hours - Advance Directives Does patient have a Living Will: No Does patient have a Durable POA for Healthcare: No - Code Status/Comfort Care Code Status Assessed: Yes (Full) Critical Care: No Time Spent Managing Pts Care (In Minutes): 70 <Navjot Pham - Last Filed: 01/31/22 21:58>
[2022-02-01] MEDS ORDERED: NA CHLORIDE 0.9% 1,000 ML IV SCH (00:01)
[2022-02-01] MEDS ORDERED: ACETAMINOPHEN 500 MG TAB PO PRN (00:01)
[2022-02-01] MEDS ORDERED: NA CHLORIDE 0.9% 1,000 ML ONE (00:16)
[2022-02-01] MEDS: HYDROCODONE/APAP 5/325 MG TAB PO PRN ×2 (00:30→08:01)
[2022-02-01] MEDS ORDERED: HYDROCODONE/APAP 5/325 MG TAB ONE (00:37)
[2022-02-01 00:47] LABS: Urine Blood 1+ (Negative); Urine Glucose Negative (Negative); Urine Protein Negative (Negative); Urine pH 5.5 (5.0-7.0)
[2022-02-01 02:07] VITALS: O2SAT 99
[2022-02-01 04:50] VITALS: BMI 19.5
[2022-02-01] MEDS: ONDANSETRON 4 MG/2 ML VIAL IV PRN ×2 (05:59→12:05)
[2022-02-01 06:39] LABS: Absolute Lymphocytes (CBC) 1.1 K/uL (0.7-4.9); Hematocrit 33.6 % (36.0-45.0); Lymphocytes % 9.8 % (15.3-44.8); MCV 90.9 fL (80-100); MPV 7.4 fL (7.6-11.3)
[2022-02-01 08:45] LABS: Albumin 2.8 g/dL (3.4-5.0); Bilirubin Total 0.7 mg/dL (0.2-1.0); Magnesium 1.9 mg/dL (1.8-2.4); Potassium 3.7 mmol/L (3.5-5.1); Protein, Total 5.5 g/dL (6.4-8.2)
[2022-02-01] MEDS ORDERED: MIDODRINE HCL 5 MG TABLET PO SCH (09:00)
[2022-02-01] MEDS ORDERED: ENOXAPARIN 40 MG/0.4 ML SQ SCH (09:00)
[2022-02-01 09:17] LABS: Thyroid Stimulating Hormone 1.31 uIU/mL (0.360-3.740)
[2022-02-01 11:46] VITALS: BP 110/67; TEMP 97.6
--- NOTE | 2022-02-01 11:57 | RAD REPORT ---
EXAM DESCRIPTION: US - CP - 02/01/2022 11:43 am CLINICAL HISTORY: Syncope COMPARISON: Head C Spine Mpr Wo Con dated 01/31/2022 TECHNIQUE: Real-time sonographic evaluation of bilateral carotid and vertebral systems was performed . [place] scale and Doppler interrogation were performed with waveform tracing bilaterally. FINDINGS: Normal high resistance waveforms are noted in both external carotid arteries. The common c arotid arteries and internal carotid arteries show normal low resistance waveforms. Scattered mild calcified and noncalcified plaquing changes are present. Findings are more pronounced in the right carotid bulb but still mild in severity. Visually there is no significant luminal narrow ing. Peak systolic and end diastolic velocity values and the ICA/CCA ratios are in the non-hemodynamicall y significant range. Vertebral artery is not well visualized but do appear to be antegrade. Velocity values and ratios were recorded and are retained in the patient's imaging records. IMPRESSION: Mild calcified and noncalcified plaquing changes are present with visually no significan t degree of luminal narrowing. No dissection findings seen. Velocity values and ratios also indicate no hemodynamically significant stenosis.
--- NOTE | 2022-02-01 13:51 | EKG ---
Test Date: 2022-01-31 Test Time: 22:31:12 Global Human Resources Director: KATHY MEASUREMENT RESULTS: Intervals: Rate: 76 KS: 152 QRSD: 74 QT: 348 QTc: 391 [place]: P: 79 KS: 152 QRS: -52 T: 63 INTERPRETIVE STATEMENTS: Normal sinus rhythm Left anterior fascicular block Abnormal ECG Compared to ECG 01/31/2022 10:47:20 ST (T wave) deviation no longer present Electronically Signed On 02-01-22 13:50:21 CDT by Luc Garcia
[2022-02-01] MEDS ORDERED: POTASSIUM CL SA 10 MEQ TAB PO ONE (14:00)
--- NOTE | 2022-02-01 14:14 | ECHO ---
HEIGHT: 5 ft 4 in WEIGHT: 114 lb 1.6 oz DATE OF STUDY: 02/01/[address]: Piter Trujillo MD 2-DIMENSIONAL: YES M.MODE: YES DOPPLER: YES COLOR FLOW: YES TDS: NO PORTABLE: YES DEFINITY: NO BUBBLE STUDY: NO DIAGNOSIS: SYNCOPE CARDIAC HISTORY: CATHERIZATION: NO SURGERY: NO PROSTHETIC VALVE: NO PACEMAKER: NO MEASUREMENTS (cm) DIASTOLIC (NORMALS) SYSTOLIC (NORMALS) IVSd 0.8 (0.6-1.2) LA Diam 2.3 (1.9-4.0) LVEF 56% LVIDd 4.3 (3.5-5.7) LVIDs 3.1 (2.0-3.5) %FS 29% LVPWd 0.8 (0.6-1.2) Ao Diam 2.4 (2.0-3.7) 2 DIMENSIONAL ASSESSMENT: RIGHT ATRIUM: NORMAL LEFT ATRIUM: NORMAL RIGHT VENTRICLE: NORMAL LEFT VENTRICLE: NORMAL TRICUSPID VALVE: NORMAL MITRAL VALVE: NORMAL PULMONIC VALVE: NORMAL AORTIC VALVE: NORMAL PERICARDIAL EFFUSION: NONE AORTIC ROOT: NORMAL LEFT VENTRICULAR WALL MOTION: NORMAL. DOPPLER/COLOR FLOW: MILD MITRAL REGURGITATION, MILD TRICUSPID REGURGITATION. COMMENTS: NORMAL LEFT VENTRICULAR EJECTION FRACTION 55-60%. NORMAL WALL MOTION. MILD MITRAL REGURGITATION. MILD TRICUSPID REGURGITATION. TECHNOLOGIST: MILTON ROGERS
--- NOTE | 2022-02-01 19:22 | P.DS ---
Discharge Date: 02/01/22 Disposition: ROUTINE DISCHARGE Discharge Condition: GOOD Reason for Admission: Syncope Brief History of Present Illness: 66-year-old female with history of breast cancer presents to the emergency department for syncope. She has had 2 syncopal episodes today the first 1 this morning after getting out of bed she says she felt very lightheaded dizzy and passed out on the bathroom floor hitting her head and breaking her right clavicle. Patient was evaluated in the emergency department at that time her labs were unremarkable and she was feeling better, she was discharged home after arriving home she had a second syncopal episode this time after getting out of the car. Patient has been COVID-positive since January 22 with progressive malaise, weakness since then. D-dimer was obtained during her second ED visit which was significantly elevated 7117 CT PE protocol was negative for pulmonary embolism but did demonstrate fractures of the posterior right fourth and lateral right fifth ribs. Given second syncopal episode ED provider was just admitted observation for syncope. Patient reports that she did have an episode of syncope in october of this year and had a workup from her PCP with echo and carotid US which she reports were normal. She also reports her normal BP is around 90/60. Hospital Course: Pt has done well during hospital stay. Pt is stable for discharge home. Vital Signs/Physical Exam: Temp Pulse Resp BP Pulse Ox 97.6 F 71 16 110/67 98 02/01/22 11:45 02/01/22 11:45 02/01/22 11:45 02/01/22 11:45 02/01/22 11:45 General: Alert, In no apparent distress, Oriented x3 Laboratory Data at Discharge: WBC 11.7 K/uL (4.3-10.9) H 02/01/22 06:18 Hgb 11.5 g/dL (12.0-15.0) L 02/01/22 06:18 Hct 33.6 % (36.0-45.0) L 02/01/22 06:18 Plt Count 342 K/uL (152-406) 02/01/22 06:18 PT 12.6 SECONDS (9.5-12.5) H 01/31/22 19:57 INR 1.14 01/31/22 19:57 APTT 26.8 SECONDS (24.3-36.9) 01/31/22 19:57 Sodium 140 mmol/L (136-145) 02/01/22 06:18 Potassium 3.7 mmol/L (3.5-5.1) 02/01/22 06:18 BUN 18 mg/dL (7-18) 02/01/22 06:18 Creatinine 0.76 mg/dL (0.55-1.3) 02/01/22 06:18 Glucose 99 mg/dL (74-106) 02/01/22 06:18 Magnesium 1.9 mg/dL (1.8-2.4) 02/01/22 06:18 Total Bilirubin 0.7 mg/dL (0.2-1.0) 02/01/22 06:18 AST 12 U/L (15-37) L 02/01/22 06:18 ALT 22 U/L (12-78) 02/01/22 06:18 Alkaline Phosphatase 37 U/L (45-117) L 02/01/22 06:18 Home Medications: Escitalopram Oxalate [Lexapro] 20 mg PO BEDTIME 02/01/22 Hydrocodone 5/APAP 325 [[place] 5/325*] 1 tab PO Q6H PRN #28 tab 02/01/22 Midodrine HCl [Proamatine*] 5 mg PO TID #90 tab 02/01/22 New Medications: Hydrocodone 5/APAP 325 [[place] 5/325*] 1 tab PO Q6H PRN #28 tab PRN Reason: Pain Scale 5-7 (Moderate) Midodrine HCl [Proamatine*] 5 mg PO TID #90 tab Physician Discharge Instructions: -DC IV and DC home -Follow-up with PCP in 1 to 2 weeks -Follow-up with Cardiology in 1 to 2 weeks -Follow-up with Orthopedics, Dr. Moura, in 1 to 2 weeks -Please call Dr. Trujillo at [phone] if any questions regarding hospital stay -Please call nursing station at [phone] if any nursing or medication questions -Return to the emergency room if symptoms worsen Diet: Regular Activity: Fall precautions Followup: [facility] [Provider Group] - 1-2 Weeks (call to schedule an appointment ) Gregory Prakash MD [ACTIVE - CAN ADMIT] - 1-2 Weeks (call to schedule an appointment ) Leroy Moura MD [ACTIVE - CAN ADMIT] - 1-2 Weeks (call to schedule an appointment ) Time spent managing pt's care (in minutes): 35
[2022-02-01] MEDS ORDERED: ESCITALOPRAM 20 MG TAB PO SCH (21:00)
== END 2022-02-01 15:48 | disposition home health service (06) ==
LOC: ER 17:10 → ERHOLD 21:41 → 2ND 02-01 00:53
PROVIDERS: ADMIT Hospitalist; ATTEND Hospitalist
DX: R55 Syncope and collapse (principal); S42.001A Fracture of unspecified part of right clavicle, initial encounter for closed fracture; S22.41XA Multiple fractures of ribs, right side, initial encounter for closed fracture; W19.XXXA Unspecified fall, initial encounter; U07.1 COVID-19; C50.911 Malignant neoplasm of unspecified site of right female breast; E86.0 Dehydration; F32.A Depression, unspecified; R63.0 Anorexia; Z68.1 Body mass index [BMI] 19.9 or less, adult; Z88.0 Allergy status to penicillin; Z88.2 Allergy status to sulfonamides; Z82.61 Family history of arthritis
CPT/HCPCS: 93005; 93306; 85025 ×2; 80048; 36415; 83735; 85610; 85379; 80076; 83605; 85730; 84443; 81003; 84484 ×3; 84439; 82728; 80053; 82533; 84145; 86140; 71275; 93880; 94010; U0003; J1650; J7030 ×4; J2405 ×2; G0378 ×2; 99285

== ENCOUNTER 2022-08-24 07:59 | Emergency (ER) | payer OTHER ==
--- OUTSIDE RECORDS SUMMARY | 2022-08-24 08:03 | XMS REPORT | Continuity of Care Document ---
:1955 Author Organization [facility] t Address [address] [place] [address] Care Team Providers Name Role Phone [phone] Primary Care Physician Unavailable Irvin Prakash Attending Clinician Unavailable MARYELLEN_Fermin Attending Clinician Unavailable FOG_A_Provider Attending Clinician Unavailable Juliana Carcamo Attending Clinician Unavailable Ella Singleton Attending Clinician Unavailable GC_SWHAOMC_Irwin_J Attending Clinician Unavailable Steve Springer Attending Clinician Unavailable GC_SWHATBIC_Irwin_J Attending Clinician Unavailable Steve Springer Attending Clinician [phone] Yoana Admitting Clinician Unavailable FOG_A_Provider Admitting Clinician Unavailable Juliana Carcamo Admitting Clinician Unavailable Ella Singleton Admitting Clinician Unavailable GC_SWHAOMC_Irwin_J Admitting Clinician Unavailable Steve Springer Admitting Clinician Unavailable GC_SWHATBIC_Irwin_J Admitting Clinician Unavailable Payers Payer Name Policy Type Policy Number Effective Date Expiration Date S kamilla ROOSEVELT [id number] 2022 HEALTHCARE 00:00:00 (MEDICARE REPLACEMENT/ADVA NTAGE - PPO) MEDICARE B-[place]: [id number] 2020 NOVITAS 00:00:00 SOLUTIONS AETNA 53 [id number] [facility] Problems Condition Condition Condition Status Onset Resolution Last Treating Co mments Source Name Details Category Date Date Treatment Clinician Date Closed Closed Problem Active Laura fracture Fracture 1-12 Orthop e of right of Right 00:00: dic clavicle Clavicle 00 [facility] Pain of Pain of Problem Active Laura right Right 1-12 Orthope shoulder Shoulder 00:00: dic joint Joint 00 [facility] Clavicle Clavicle Problem Active Azale a pain Pain 1-12 Orthope 00:00: dic 00 [facility] Tendonitis Tendonitis Problem Active A zalea of right of Right 1-12 Orthop e shoulder Shoulder 00:00: dic 00 [facility] Depressive Depressive Problem Active P rivia disorder Disorder 3-22 Medica l 00:00: 00 Menopausal Menopausal Problem Active P rivia syndrome Syndrome 2-19 Medica l 00:00: 00 Atrophic Atrophic Problem Active [facility] vaginitis Vaginitis [facility] [id number] Closed Problem Active Common nondisplac [facility] fracture [facility] end [facility] [place] right clavicle, initial encounter Allergies, Adverse Reactions, Alerts Allergy Allergy Status Severity Reaction(s) Onset Inactive Treating Comm ents Source Name Type Date Date Clinician No Known DA Active U 2005-0 [facility] Contrast 4[facility]12 [facility] [place] No Known DA Active U 2006-0 [facility] Food 4-12 [facility] [place] No Known DA Active U 2006-0 [facility] Other 4-12 [facility] [place] SULFA DA Active U HIVES 2006-0 [facility] DRUGS 4-12 [facility] [place] SULFA Allergy Active Moderate Anaphylaxis Pr ivia (SULFONA to Medical MIDE substanc ANTIBIOT e ICS) Social History Social Habit Start Date Stop Date Quantity Comments Source History of Tobacco Use Co mmon [facility] Sex Assigned At Com mon [facility] Smoking Status Start Date Stop Date Source Never Smoker [facility] Medications Ordered Filled Start Stop Current Ordering Indication Dosage Frequency Signature Comments Components Source Medication Medication Date Date Medication? Clinician (SIG) Name Name escitalopra escitalopra No escitalopr [facility] 20 mg m 20 mg am 20 mg Medic al tablet TAKE tablet TAKE tablet 1 TABLET BY 1 TABLET BY TAKE 1 MOUTH EVERY MOUTH EVERY TABLET BY DAY DAY MOUTH EVERY DAY estradiol estradiol No estradiol [facility] 0.5 mg 0.5 mg 0.5 mg Medical tablet tablet tablet INSERT INSERT INSERT VAGINALLY VAGINALLY VAGINALLY 1/2 TABLET 1/2 TABLET 1/2 TABLET every night every night every for two for two night for weeks then weeks then two weeks 3 TIMES A 3 TIMES A then 3 WEEK WEEK TIMES A WEEK Fyavolv 1 Fyavolv 1 No Fyavolv 1 [facility] mg-5 mcg mg-5 mcg mg-5 mcg Med ical tablet TAKE tablet TAKE tablet 1 TABLET BY 1 TABLET BY TAKE 1 MOUTH EVERY MOUTH EVERY TABLET BY DAY DAY MOUTH EVERY DAY Vitamin Vitamin No Vitamin [facility] Lexapro Lexapro No Lexapro Lexapro Lexapro No Lexapro Lexapro Lexapro No Lexapro cyanocobala cyanocobala No cyanocobal Laura min (vit min (vit garcia (vit Or thope B-12) 1,000 B-12) 1,000 B-12) dic mcg/mL mcg/mL 1,000 Sports injection injection mcg/mL Med icin solution solution injection e solution escitalopra escitalopra No escitalopr Laura m 20 mg m 20 mg am 20 mg Ortho pe tablet tablet tablet dic Sports Medicin e estradiol estradiol No estradiol Laura 0.5 mg 0.5 mg 0.5 mg Orthope tablet tablet tablet dic Sports Medicin e Fyavolv 1 Fyavolv 1 No Fyavolv 1 Laura mg-5 mcg mg-5 mcg mg-5 mcg Ort hope tablet tablet tablet dic Sports Medicin e letrozole letrozole No letrozole Laura 2.5 mg 2.5 mg 2.5 mg Orthope tablet tablet tablet dic Sports Medicin e Immunizations Ordered Immunization Filled Immunization Date Status Commen ts Source Name Name influenza, influenza, 2020-07-29 Completed [facility] injectable, injectable, 00:00:00 quadrivalent quadrivalent COVID-19, mRNA, COVID-19, mRNA, 2020-07-29 Completed [facility] LNP-S, PF, 30 LNP-S, PF, 30 00:00:00 mcg/0.3 mL dose mcg/0.3 mL dose (Pfizer-BioNTech) (Pfizer-BioNTech) Vital Signs Vital Name Observation Time Observation Value Comments Source Height 2022-08-09 00:00:00 64 [in_i] [facility] O rthopedic Sports Medicine BMI (Body Mass 2022-08-09 00:00:00 19.6 kg/m2 [facility]) Sports Medicine Body Weight 2022-08-09 00:00:00 114 [lb_av] Laura O [facility] height 2022-03-14 13:00:00 64 [in_i] [facility] weight 2022-03-14 13:00:00 111 [lb_av] [facility] temperature 2022-03-14 13:00:00 97.0 [degF] [facility] bmi 2022-03-14 13:00:00 19.05 kg/m2 [facility] blood pressure 2022-03-14 13:00:00 120 mm[Hg] [facility] systolic [facility] blood pressure 2022-03-14 13:00:00 70 mm[Hg] [facility] diastolic [facility] height 2022-02-15 14:00:00 64 [in_i] [facility] weight 2022-02-15 14:00:00 111 [lb_av] [facility] bmi 2022-02-15 14:00:00 19.05 kg/m2 [facility] blood pressure 2022-02-15 14:00:00 122 mm[Hg] [facility] systolic [facility] blood pressure 2022-02-15 14:00:00 72 mm[Hg] [facility] diastolic [facility] BP Diastolic 2021-10-17 00:00:00 62 mm[Hg] [facility]ia kay Height 2021-10-17 00:00:00 65 [in_i] Claudia kay BMI (Body Mass 2021-10-17 00:00:00 18.5 kg/m2 [facility]) BP Systolic 2021-10-17 00:00:00 114 mm[Hg] [facility] Body Weight 2021-10-17 00:00:00 111 [lb_av] [facility] Procedures Procedure Date / Time Performing Clinician Source Performed XR, shoulder, 2 or more 2022-08-09 00:00:00 Toya ea [facility] view Sports Medicine XR, clavicle 2022-08-09 00:00:00 [facility] MAMMO, screening, 2021-10-17 00:00:00 [facility] bilateral BONE DENSITY 2021-10-17 00:00:00 [facility] MEASUREMENT USING DEDICATED X RAY MACHINE Caesarean Section [facility] Cancer Surgery [facility] Plan of Care Planned Activity Planned Date Details Comments Source Diagnostic Test 2021-10-17 Mucor racemosus IgE [facility] Pending 00:00:00 Ab [Units/volume] in Serum [code = 6182-0] Diagnostic Test 2021-10-17 urinalysis complete, [facility] Pending 00:00:00 reflex culture [code = urinalysis complete, reflex culture] Diagnostic Test 2021-10-17 Grapefruit IgE Ab [facility] Pending 00:00:00 [Units/volume] in Serum [code = 6131-7] Diagnostic Test 2021-10-17 Cocksfoot IgE Ab [facility] Pending 00:00:00 [Units/volume] in Serum [code = 6195-2] Diagnostic Test 2021-10-17 lipid panel, serum [facility] Pending 00:00:00 [code = lipid panel, serum] Diagnostic Test 2021-10-17 Clostridium tetani [facility] Pending 00:00:00 Ab [Presence] in Serum [code = 5093-0] Future Appointment 2022-10-17 Steve Springer, [address] [facility] 00:00:00 [facility]; [address] [address] Future Appointment 2022-09-18 Tish Christianson, [address] [facility] 13:00:00 [facility] [place] [address] Encounters Start End Encounter Admission Attending Care Care Encounter Source Date/Time Date/Time Type Type Clinicians Facility Department ID 2022-04-25 Outpatient EDITA Prakash [facility] [id number] Common 05:33:01 Irvin [facility] 2022-02-15 Outpatient EDITA Prakash [facility] [id number] Common 14:05:02 Irvin [facility] 2022-08-09 2022-08-09 Outpatient FOG_Burke_R AOSM AOSM [id number] Laura 00:00:00 00:00:00 Esther [id number] Ortho pe dic Sports Medicin e 2022-08-09 2022-08-09 Tish H AOSM [place] - [place]o Laura 00:00:00 00:00:00 Christy Christianson PA: [id number] FOG_Ofc dic [facility], Medici n [address], [place] [address] , Ph. [phone] 2022-08-08 2022-08-08 Outpatient FOG_Burke_R AOSM AOSM [id number] Laura 00:00:00 00:00:00 Esther [id number] Ortho pe dic Sports Medicin e 2022-08-03 2022-08-03 Outpatient FOG_Burke_R AOSM AOSM [id number] Laura 00:00:00 00:00:00 Esther [id number] Ortho pe dic Sports Medicin e 2022-07-31 2022-07-31 Outpatient FOG_A_Provi AOSM AOSM [id number] Laura 00:00:00 00:00:00 damion [id number] Orthop e dic Sports Medicin e 2022-05-11 2022-05-11 Outpatient AUDREY Carcamo, [facility] [id number] [facility] 12:00:00 12:00:00 Juliana Franco [facility] 2022-04-04 2022-04-04 Outpatient AUDREY Singleton [facility] [id number] [facility] 06:56:00 06:56:00 Ella Leon [facility] 2022-04-03 2022-04-03 Outpatient AUDREY Singleton [facility] [id number] [facility] 12:00:00 12:00:00 Ella Leroy [facility] 2022-03-15 2022-03-15 (TEL) STLMLC STLMLC [id number] Co mmon 00:00:00 00:00:00 [facility] 2022-03-14 2022-03-14 OFFICE STLMLC STLMLC [id number] Co mmon 00:00:00 00:00:00 VISIT EST Spir it PT LEVEL 3 [facility] 2022-02-15 2022-02-15 OFFICE STLMLC STLMLC [id number] Co mmon 00:00:00 00:00:00 VISIT NEW Spir it PT LEVEL 3 [facility] 2022-01-07 2022-01-07 Outpatient GC_SWHAOMC_ PRIV PRIV [id number] [facility] 12:47:00 12:47:00 Rasheeda [id number] Medica l 2021-12-11 2021-12-11 Outpatient Steve Jones [facility] F00 [id number] [facility] 12:00:00 12:00:00 60 [facility] 2021-12-10 2021-12-10 Outpatient GC_SWHAOMC_ PRIV PRIV [id number] [facility] 02:11:00 02:11:00 Rasheeda [id number] Medica l 2021-12-04 2021-12-04 Outpatient GC_SWHATBIC PRIV PRIV [id number] [facility] 02:24:00 02:24:00 _Rasheeda [id number] Medic al 2021-11-28 2021-11-28 Outpatient GC_SWHATBIC PRIV PRIV [id number] [facility] 10:02:00 10:02:00 _Rasheeda [id number] Medic al 2021-11-17 2021-11-17 Outpatient GC_SWHATBIC PRIV PRIV [id number] [facility] 11:27:00 11:27:00 _Rasheeda [id number] Medic al 2021-11-12 2021-11-12 Outpatient GC_SWHAOMC_ PRIV PRIV [id number] [facility] 01:10:00 01:10:00 IrAngelia [id number] Medica l 2021-10-23 2021-10-23 Outpatient GC_SWHATBIC PRIV PRIV [id number] [facility] 03:00:00 03:00:00 _IrAngelia [id number] Medic al 2021-10-23 2021-10-23 Outpatient GC_SWHATBIC PRIV PRIV [id number] [facility] 03:00:00 03:00:00 _Rasheeda [id number] Medic al 2021-10-17 2021-10-17 Outpatient GC_SWHAOMC_ PRIV PRIV [id number] [facility] 02:58:00 02:58:00 Rasheeda [id number] Medica l 2021-10-17 2021-10-17 Outpatient GC_SWHATBIC PRIV PRIV [id number] [facility] 02:58:00 02:58:00 _Rasheeda [id number] Medic al 2021-10-17 2021-10-17 Outpatient Steve Springer [facility] PRIV [id number] 00:00:00 00:00:00 [place] [id number] 2021-10-17 2021-10-17 Steve [facility] - [facility] 00:00:00 00:00:00 [facility] Medic lorie Springer MD: GC_SWHAOMC_ [address] Counts Include [address] [facility], [address], [place] [address] , Ph. 2021-10-16 2021-10-16 Outpatient GC_SWHAOMC_ PRIV PRIV [id number] [facility] 09:55:00 09:55:00 Rasheeda [id number] Medica l Results Test Description Test Time Test Comments Results Result Comments Source SURGICAL 2022-04-06 16:51:00 Test Item Value Reference Range Interpretation Comme nts SURGICAL RUN DATE: (test 04/18/22 [facility] PAGE 1 RUN TIME: 929 Specimen Inquiry RUN USER: INTERFACE code = PATIENT: SR) BABITA CONNOR [id number] LOC: LILLY U #: [id number] AGE/SX: 67/F ROOM: RE04/04/22[facility] DR: Ella Singleton MD : 55 BED: DIS: STATUS: [place] [facility] [place]: SPEC #: [id number] RECD: [id number] STATUS: YOBANI THACKER #: [id number] LAURENT: 04/04/22- [address]: Ella Singleton MD ENTERED : 04/04/22-140 SP TYPE: SURGICAL OTHR DR: ORDERED: ANATOMIC SPEC/4, SPEC TRACK, 79714/2, 37368/2, 883 42 PROCEDURES: [id number] (04/04/22-1401) 79517 (04/04/22-140) [id number] (04/06/22-1305) TISSUES: A. BREAST MASTECTOMY PARTIAL / SIMPLE / LUMPECTOMY - LEFT LUMPECTOMY, SHORT SUPERIOR, LONG LATERAL, DOUB LE DEEP B. LYMPH NODE AXILLARY - LEFT SENTINEL LYMPH NODE C. BREAST MARGINS - LEFT ANTERIOR MARGIN, CLIP AT NEW MARGIN D. BREAST MARGINS - LEFT INFERIOR MARGIN, CLIP AT NEW MARGIN ADDENDUM FINDINGS Addendum # 1 Entered: 04/18/22-929 Tissue was sent to [facility] for testing (on Block A4 and results are rep orted asfollows.Report number: [id number] Score Result: 27Distant Recurrence Risk at 9 Years: 16%Group Average Absolute Chemotherapy Benefit: greater than 15% PLEASE SEE ORIGINAL REFERENC E LAB REPORT FOR DETAILS Addendum Signed Yumi Negrete 04/18/22929 CAP CANCER SUMMARY Surgical Pathology Nieves grajeda Case SummaryProtocol posting date: December 2021INVASIVE CARCINOMA OF THE BREAST: Specimen Identificat ionProcedure ___ Excision (less than total mastectomy) Specimen Laterality___ Left CONTINUED ON NEXT PAGE RUN DATE: 04/18/22 [facility] PAGE 2 RUN TIME: 929 Specimen Inquiry RUN USER: INTERFACE SPEC #: [id number] PATIENT: BABITA CONNOR #[id number] (Continued) CAP CANCER SUMMARY (Continue d) Tumor Site: ___ Lower outer quadrant ___ 4:00 clock Tumor Size ___ Greatest dimension of larges t invasive focus (millimeters): 9 mm x 7 mm x 6 mm Histologic Type ___ Invasive carcinoma of no spe cial type (ductal, not otherwise specified) Histologic Grade (Serena Histologic Score) Glandular (Acinar)/Tubular Differentiation___ Score 2 (10 to 75% of tumor area forming glandular / tubular structur es) Nuclear Pleomorphism___ Score 2 (cells larger than normal with open vesicular nuclei, visible nu cleoli, andmoderate variability in both size and shape)Mitotic Rate___ Score 1 (less than 3 mitoses) Over all Grade ___ Grade 1 (scores of 3, 4 or 5) Tumor Focality ___ Single focus of invasive carcinoma Ductal Carcinoma In Situ (DCIS) ___ Present ___ Negative for extensive intraductal component (EIC) Architectura l Patterns___ Solid___ Cribriform Nuclear Grade___ Grade II (intermediate) Lobular Carcinoma In Situ (L CIS) ___ Not identified (scattered foci of atypical lobular hyperplasia present in thebackground) Tu mor Extension ___ Not applicable (skin, nipple, and skeletal muscle are absent) Lymphovascular Invas ion ___ Not identified Dermal Lymphovascular Invasion ___ Not applicable Microcalcifications CONTINUED ON NEXT PAGE RUN DATE: 04/18/22 [facility] PAGE 3 RUN TIME: 929 Specimen Inquiry RUN USER: INTERFACE SPEC #: [id number] PATIENT: BABITA CONNOR #[id number] (Continued) CAP CANCER SUMMARY (Continue d) ___ Not identified Treatment Effect in the Breast___ No known presurgical therapyTreatment Effect in t he Lymph Nodes___ Not applicable Margins Invasive Carcinoma Margins (required only if residual i nvasive carcinoma is present inspecimen)___ Uninvolved by invasive carcinomaDistance from close st margin (millimeters): 10 mm Specify closest margin: anterior Distance from closest margin (millime ters): 6 mm Specify closest margin: deep/ posteriorDCIS Margins (required only if DCIS is present in s pecimen)___ All margins negative for DCIS Distance from DCIS to Closest MarginDistance from closest margin (millimeters): 7 mm Specify closest margin: deep/ posterior Regional Lymph Nodes ___ Regional lym ph nodes present ___ All regional lymph nodes negative for tumor Number of Lymph Nodes with Macrometast ases (greater than 2 mm):0Number of Lymph Nodes with Micrometastases (greater than 0.2 mm to 2 mm and / or greaterthan 200 cells) :0Number of Lymph Nodes with Isolated Tumor Cells (0.2 mm or less OR 200 cells or less):0Total Number of Lymph Nodes Examined (sentinel and non-sentinel) ___ Exact numb er (specify): 2Number of [place] Nodes Examined: 2 Distant Site(s) Involved, if applicable ___ Not applicable Pathologic Stage Classification (pTNM, AJCC 8th Edition)Note: Reporting of pT, pN, and (wh en applicable) pM categories is based on informationavailable to the pathologist at the time the report is issued. Primary Tumor (Invasive Carcinoma) (pT) ___ pT1b: Tumor greater than 5 mm but less t clemente or equal to 10 mm in greatest dimensionCategory (pN)___ (sn): [place] node(s) evaluated___ pN0: No regional lymph node metastasis identified BREAST PREDICTIVE/PROGNOSTIC MARKERS LEFT BREAST, 4:00, B IOPSY - Estrogen receptor: Positive, 98 % with 3+staining. - Progesterone receptor: Negative, 0 % with no staining. CONTINUED ON NEXT PAGE RUN DATE: 04/18/22 [facility] PAGE 4 RUN TIME: 929 Specimen Inquiry RUN USER: INTERFACE SPEC #: [id number] PATIENT: BABITA CONNOR #[id number] (Continued) CAP CANCER SUMMARY (Continue d) - HER2: low positive, 1+ - Ki-67: Low proliferation, 2% FINAL DIAGNOSIS A. BREAST, LEFT, LUMPECTOMY: - invasive well-differentiated ductal adenocarcinoma, Serena grade 1 of 3 measuring 0.9cm in greates t dimension-ductal carcinoma in-situ solid and cribriform type and intermediate nuclear grade-b ackground breast tissue showing scattered foci of atypical lobular hyperplasia, apocrinemetapla lionel as well as columnar cell hyperplasia.-margins of resection narrowly free; closest anterior raul n is 0.5 mm away from invasivecarcinoma and 2 mm away from ductal carcinoma in-situ (see part C of this case) B. LYMPH NODE (TWO), LEFT SENTINEL LYMPH NODE, BIOPSY:- reactive lymph node without isolated tumor cells or micrometastases or macrometastases(0/2)- properly controlled AE1/AE3 performed on blocks B1 and B2. C. BREAST, LEFT ANTERIOR MARGIN (CLIP AT NEW MARGIN), RE-EXCISION:- benign breast tissue; negative for carcinoma in-situ or invasive malignancy D.BREAST, LEFT INFERIOR MARGIN (CLIP AT NEW MARGIN), RE-EXCISION:- benign breast tissue; negative for carcinoma in-situ or invasive malignancy GROSS DESCRIPTION Specimen received in formalin in 4 parts each labeled with patient's name, MRN, and jena e ofbirth. Specimen A is labeled left lumpectomy, short superior, long lateral, double deep. Itcons ists of a soft yellow lobulated tissue portion weighing 29 g and measuring 2.5-4.6 cmfrom lateral to me dial, 4.1 cm to 5.4 cm from superior to inferior and 1.0-2.1 cmanteroposteriorly. Outer s urface is soft yellow lobulated tissue with focal dense tanfibrous tissue. Specimen is oriented accordi ng to the sutures and inked as follows:Superior margin -blue, inferior margin -green, lateral raul n -orange, medial margin -red,anterior margin - yellow and deep margin -black.Specimen is serially sectioned from inferiorto superior in 14 slices. A 0.9 x 0.7 x 0.6 cm in maximum dimensions cavity/he morrhagicarea is present from slice 3 to slice 5, which is grossly approaching nearest anterior anddeep margins and is 0.5 cm from nearest medial margin, 0.7 cm from nearest inferior marginand 1 .1 cm from lateral margin. It has a Ned yenni localizing device in slice 4 next tohemorrhagic cavity. A n irregular dense garcia fibrous tissue area is extending from 0.4 cm ofinferior margin to 1.1 cm from superior margin and measuring approximately 4.5 x 4.1 x 1.9cm in maximum dimensions. It is gr ossly within 0.1 cm of nearest anterior, deep and medialmargins. Remaining tissue is soft yellow lobula reid tissue with garcia parenchyma. Specimenis entirely submitted as follows: A1 perpendicular sections of in ferior margin/slice 1 A2 slice 2 A3-A4 slice 3 A5- A6 slice 4 CONTINUED ON NEXT PAGE RUN DATE: 04/18/22 [facility] PAGE 5 RUN TIME: 929 Specimen Inquiry RUN USER: INTERFACE SPEC #: [id number] PATIENT: BABITA CONNOR #[id number] (Continued) GROSS DESCRIPTION (Continued ) A7-A8 slice 5 A9-A10 slice 6 A11-A12 slice 7 A13- A14 slice 8 A15-A16 slice 9 A17 -A18 slice 10 A19-A20 slice 11 A21 - slice 12 A22 - slice 13 A23 - perpendicular sections of superior margin/slice 14 Spe cimen B is labeled left sentinel lymph node. It consists of a 2.7 x 2.3 x 0.7 cmaggregate of 2 soft ye llow tissue portions. Sectioning reveals 2 soft garcia lymph nodesmeasuring 0.5 and 0.9 cm in greatest dimen edgardo. Remaining is soft yellow lobulated tissue. Specimen is entirely submitted as follows: B 1-B2 1 bisected lymph node each B3 remaining specimen Specimen C is labeled left anterior margin, clip at new margin. It consists of a softyellow lobulated tissue portion with a silver metallic clip at new margin. It weighs 3 gand measures 3.5 x 1.7 x 1.1 cm in maximum dimensions. New margin is inked black. Secti oning reveals soft garcia-yellow tissue. Specimen is submitted entirely in 3 cassettesC1-C3 as perpendicu lar sections of new margin. Specimen D is labeled left inferior margin, clip at new margin. It consists o f a 2.5 x1.1 x 0.8 cm irregular soft garcia-yellow focally congested tissue portion with a silvermetalli c clip on 1 side. Clip margin is inked black. Specimen is entirely submitted in 2cassettes D1-D2 as perpe ndicular sections of inked margin. Ischemia time: 90 minutes total time in formalin: From 1350 hours on 2aj04/05/22 Technical component performed at [facility],[address], [place], [place] [address] Unless gross only, the diagnosis is based upon microscopic examination.Immunohistochemi stry: This test was developed and its performance characteristicsdetermined by this laboratory. It has n ot been approved nor does it need approval by [place] FDA. Appropriate positive and negative contro ls are reviewed and judged to beacceptable. This laboratory is certified under the Clinical Laborator [facility] (CLIA-88) as qualified to perform high complexity clinical laboratory testing. MICROSCOPIC DESCRIPTION Subsequent microscopic examination, properly controlled AE1/AE3 immunohis tochemical stainis performed on block B1 and B2 along with multiple levels examined. There is no eviden ceof metastatic carcinoma in the form of isolated tumor cells, micrometastases ormacrometastases present. CONTINUE D ON NEXT PAGE RUN DATE: 04/18/22 [facility] PAGE 6 RUN TIME: 0930 Specimen Inquiry RUN USER: INTERFACE SPEC #: [id number] PATIENT: BABITA CONNOR #[id number] (Continued) CLINICAL INFORMATION 04/04/22, OUT OF BODY 1220P, IN FORMALIN 1350, OUT OF FORMALIN 04/05/22 @ 1535LEFT BREAST CANCER. Signed SIGNATURE ON Yumi Ervin 04/06/22 165 1 END OF REPORT - NM [id number] 00:00:00 [facility] 1955 Sex: F Patient Name: BABITA CONNOR Unit No: [id number] EXAMS: CPT CODE: [id number] CT LYMPHIMAG [id number] PROCEDURE INFORMATION: Exam: NM Lymphatics And Lymph Node Imaging Exam date and time: 04/04/2022 9:57 AM Age: 67 years old Clinical indication: Condition or disease; Condition/disease: Breast cancer; Prior surgery; Surgery date: 6+ months; Surgery type: HX. Left excisional biopsy several years ago. ; Additional info:Left breast CA. - sentinel node mapping TECHNIQUE: Imaging protocol: Lymphatics and lymph node nuclear imaging. Radiopharmaceutical: 590 uCi Tc-99m Tilmanocept (Lymphoseek), Intradermal. COMPARISON: [facility] prior studies available. FINDINGS: Procedure summary: Intradermal Tc-99m Tilmanocept (Lympho seek) injected into the left breast. Radiopharmaceutical injection time was 0840 hours. Complications: None. Notes: Radiotracer accumulation is seen at the 11-12 o'clock region of the left breast and represents the sentinel lymph node uptake. IMPRESSION: Successful Tc-99m Tilmanocept (Lymphoseek) injection for surgical biopsy of the sentinel lymph node detection. [place] lymph node at the 11-12 o'clock region of the left breast. at 1115 Reported and signed by: Nereida Tang MD CC: Ella Singleton MD Technologist: Ignacio Bowers Trnscrbd D/ (1115) GCD.CPS Orig Print D/T: S: 04/04/2022 (1115) [facility] NAME: BABITA CONNOR Radiology Department PHYS: Ella Cardoso MD [address] : 1955 AGE: 67 SEX: F [place], [place] [address] LOC: [facility] PHONE #: [phone] EXAM DATE: 04/04/2022 [place]US: [place] [facility] [place]: [phone] RAD NO: [id number] Page 1 Signed ReportCOVID 19 Asymptomatic IH [id number] 15:17:00 Test Item Value Reference Range Interpretation Comments COVID 19 NEGATIVE NEGATIVE This test has b een Asymptomatic IH AG authorize d only for the (test code = detection ofpro teins from COVNONPUIAG) SARS-CoV-2, not for any other viruses orpathogens. Ne gative results should be treated as presumptive andconfirmed wi th a molecular assay , if necessary for patientmanageme nt. Negative result s do not rule out COVID- 19 andshould not b e used as the sole basis for treatment orpat ient management deci sions, including infec tion controldecision s. Negative result s should be considered i n thecontext of a patient's recent exposure s, history and thepresence of clinical signs and symptoms consis tent withCOVID-19. T his test has not been FD A cleared or approved; th e test hasbeen authoreros briceño by FDA under an Emerge ncy Use Authorization(E UA) for use by vaishali staley certified under the CLIA thatmeet the re quirements to perform mode rate, high or waivedcomple xity tests. This aliza t is authorized for use at thePoint of Car e (POC), i.e., in patien t care settingsoperati ng under a CLIA Certificat e of Waiver, Certifi azael ofCompliance, o r Certificate of Accreditation. This test is only authori keyanna for the duration of thedeclaration that circumstances e xist justifying theauthorizatio n of emergency use o f in vitro diagnostic test sfor detection and/o r diagnosis of CO VID-19 under Eutmgot02 4(b)(1) of the Act, 21 U.S .C. 360bbb-3(b)(1), unless theauthorizatio n is terminated or r evoked sooner. HGB [id number] 14:12:00 Test Item Value Reference Range Interpretation Comments HEMOGLOBIN (test code = HGB) 11.9 g/dL 10.1-13.8 N HEMATOCRIT (test code = HCT) 34.8 % 32.5-41.8 N [id number] 17:09:00 Test Item Value Reference Range Interpretation Comments SURGICAL (test code = SR) -----RUN DATE: 12/13/21 [facility] PAGE 1 RUN TIME: 1303 Specimen Inquiry RUN USER: INTERFACE -----PATIENT: BABITA CONNOR LOC: [facility] [place] #: [id number] AGE/SX: 66/F ROOM: RE12/11/21REG DR: Steve Springer MD : 55 BED: DIS: STATUS: PRE REF TLOC: ----- SPEC #: [id number] RECD: 12/11/21 STATUS: YOBANI RE #: [id number] LAURENT: 12/11/[address] [facility] [address]: Steve Springer MD ENTERED: 12/11/21 SP TYPE: SURGICAL OTHR DR: Toby Thomson MD ORDERED: ANATOMIC SPEC, SPEC TRACK, [id number], [id number] COPIES TO: [place] [address] [place] [address] Steve Springer MD [address] [facility] [address] [place] [address] PROCEDURES: [id number] (12/11/21-1002) [id number] (12/12/21-1203) TISSUES: A. BREAST BIOPSY WITH MAMMOGRAM - LEFT BREAST 4:00 (7MM) CLINICAL COMMUNICATIONS Dr. Mckenna released the case results to Siddharth Levine on 12/12/21 at 6138. FINAL DIAGNOSIS A. BREAST, LEFTT, 4:00, CORE BIOPSY: -Invasive breast carcinoma of no special type (ductal). -Gore Grade 1, (Tubule formation 3, Nuclear pleomorphism 2, Mitotic rate 1). -Size: At least 0.5 cm. -Microcalcifications identified in invasive carcinoma. -Prognostic markers are ordered and will be reported as an addendum. GROSS DESCRIPTION Specimen received in formalin, labeled with patient's name, MRN, date of and leftbreast 4:00. Specimen consists of 4 cores of soft yellow tissue ranging from 0.4 cm to 1.1cm in length and 0.1 cm in diameter. Entirely submitted in cassette A1. Ischemia time: 2 minutes total time in formalin: From 0940 hours on 12/11/2021Technical component performed at [facility],[place] [address] , [place] [address] Unless gross only, the diagnosis is based upon microscopic examination.Immunohistochemis try: This test was developed and its performance characteristics CONTINUED ON NEXT PAGE -----RUN DATE: 12/13/21 [facility] PAGE 2 RUN TIME: 1303 Specimen Inquiry RUN USER: INTERFACE -----SPEC #: [id number] PATIENT: BABITA CONNOR #[id number] (Continued) GROSS DESCRIPTION (Continued) determined by this laboratory. It has not been approved nor does it need approval by [place] FDA. Appropriate positive and negative controls are reviewed and judged to beacceptable. This laboratory is certified under the Clinical Laboratory ImprovementAmendments (CLIA-88) as qualified to perform high complexity clinical laboratory testing. PREDICTIVE MARKERS Addendum #1 Entered: 12/13/21-1302 ADDITIONAL STUDIES WERE PERFORMED AT [facility] ([id number]) AND ARE REPORTED ASFOLLOWS: BREAST PREDICTIVE/PROGNOSTIC MARKERS, COMPUTER ASSISTED QUANTITATIVE BREAST PANEL BREAST, LEFT, CORE NEEDLE BIOPSY: Estrogen receptor, ER: 98 % strong staining, positive Progesterone receptor, [place]: 0.9% weak staining, negative HER2: 1+, negative Ki67 proliferataion index: 2% low proliferation PLEASE SEE ORIGINAL REFERENCE LAB REPORT FOR DETAILS Addendum Signed SIGNATURE ON AMY MckennaHarley 12/13/21 1302 ----- CLINICAL INFORMATION TIME OUT OF BODY: 12/11/21 @ 0938 TIME IN FORMALIN: 12/11/21 @ 0940 TIME OUT OF FORMALIN:12/11/21 @ 1615 --------- Signed SIGNATURE ON AMY MckennaHarley 12/12/21 4342 ----- END OF REPORT
[2022-08-24] MEDS ORDERED: TRAMADOL HCL 50 MG TAB ONE (08:23)
[2022-08-24] MEDS ORDERED: PROMETHAZINE 25 MG TABLET ONE (08:23)
[2022-08-24] MEDS ORDERED: LIDOCAINE HCL/EPINEPHRINE 20 ML MDV IJ ONE (09:00)
--- NOTE | 2022-08-24 09:16 | RAD REPORT ---
EXAM DESCRIPTION: RAD - Chest Single View - 08/24/2022 8:37 am CLINICAL HISTORY: fall, left-sided pain COMPARISON: Portable 01/31/2022 TECHNIQUE: AP portable chest image was obtained 08/24/2022 8:37 am . FINDINGS: No pulmonary contusion or acute lung parenchymal process. Lung parenchymal pattern matches the comparison. No hilar mass or lymphadenopathy. Heart and vasculature are normal. No measurable pleural effusion an d no pneumothorax. Bones appear osteopenic for age. No gross rib deformity seen. Rib detail is limite d on a portable examination. No acute aortic findings suspected. IMPRESSION: No acute cardiopulmonary process. No gross rib deformity seen. Rib detail is limited on single-view portable imaging. Dedicated rib mitali ms could be obtained for ongoing concerns for rib fracture.
--- NOTE | 2022-08-24 09:19 | RAD REPORT ---
EXAM DESCRIPTION: RAD - Forearm Left - 08/24/2022 8:37 am CLINICAL HISTORY: SMASH INJURY COMPARISON: None. FINDINGS: Transverse fracture of the distal radius is present. There is impaction along the dorsal m argin an approximately 10 degree dorsal angulation deformity of the distal fracture fragment. No path ologic change seen. Carpal bones maintain normal positioning to the articular surface of the radius. There are lucent lines traversing the triquetrum and pisiform bones suspicious for nondisplaced fract ure. Fracture of these carpal bones in the setting of the radius fracture would not likely alter frac ture management. No periosteal reaction. There is no dislocation. No foreign body or other soft tissue abnormality. IMPRESSION: Transverse fracture distal radius with mild dorsal angulation and mild dorsal margin imp action. Suspected nondisplaced fractures of the triquetrum and pisiform bones.
--- NOTE | 2022-08-24 09:20 | RAD REPORT ---
EXAM DESCRIPTION: RAD - C Spine Ap/Lat - 08/24/2022 8:37 am CLINICAL HISTORY: SMASH INJURY, fall left-sided head, neck and chest pain COMPARISON: No comparisons FINDINGS: Cervical bodies are normal in height. No subluxation abnormality. There is reversal of the usual cervical lordosis with a very slight kyphosis. This could be positioning artifact or muscle sp asm. Facet joints align normally. No fracture or acute bony process seen. Disc space narrowing involv es C4-5, C5-6 and C6-7. Anterior endplate spurs are present at all these levels. There is minimal pos terior endplate spurring change at C4-5 and C5-6. There is no prevertebral soft tissue thickening or other suspicious soft tissue finding. IMPRESSION: Cervical spine degenerative change as detailed. No fracture or acute finding.
--- NOTE | 2022-08-24 09:54 | EDPHYS ---
Physician Documentation [facility] Name: Babita Connor Age: 67 yrs Sex: Female : 1955 Arrival Date: 08/24/2022 Time: 08:03 Bed 5 Private MD: ED Physician Andreas Silva HPI: 08/24 09:49 This 67 yrs old Female presents to ER via Ambulatory with complaints of Fall Injury, snw Laceration To Forehead, Wrist Injury. 09:49 Details of fall: The patient fell from an upright position, while running, tripped. snw Onset: The symptoms/episode began/occurred suddenly, just prior to arrival. Associated injuries: The patient sustained injury to the head, contusion, laceration, dorsal aspect of left wrist and palmar aspect of left wrist, decreased range of motion, obvious fracture, painful injury. Severity of symptoms: At their worst the symptoms were moderate. 4 times since February. s/p Breast ca, sees [facility]. Historical: - Allergies: 08:13 PENICILLINS; hb 08:13 Sulfa (Sulfonamide Antibiotics); hb - PMHx: 08:13 BREAST CA; covid +; depressive disorder; hb - Social history:: Smoking status: Patient denies any tobacco usage or history of. ROS: 09:33 Constitutional: Negative for fever, chills, and weight loss, ENT: Negative for injury, snw pain, and discharge, Neck: Negative for injury, pain, and swelling, Cardiovascular: Negative for chest pain, palpitations, and edema, Respiratory: Negative for shortness of breath, cough, wheezing, and pleuritic chest pain, Abdomen/GI: Negative for abdominal pain, nausea, vomiting, diarrhea, and constipation, Back: Negative for injury and pain, : Negative for injury, bleeding, discharge, and swelling, Skin: Negative for injury, rash, and discoloration. 09:33 MS/extremity: Positive for injury or acute deformity, decreased range of motion, deformity, tenderness, of the left radius. Exam: 09:34 Constitutional: This is a well developed, well nourished patient who is awake, alert, snw and in no acute distress. 09:34 Eyes: Pupils equal round and reactive to light, extra-ocular motions intact. Lids and lashes normal. Conjunctiva and sclera are non-icteric and not injected. Cornea within normal limits. Periorbital areas with no swelling, redness, or edema. ENT: Nares patent. No nasal discharge, no septal abnormalities noted. Tympanic membranes are normal and external auditory canals are clear. Oropharynx with no redness, swelling, or masses, exudates, or evidence of obstruction, uvula midline. Mucous membranes moist. Neck: Trachea midline, no thyromegaly or masses palpated, and no cervical lymphadenopathy. Supple, full range of motion without nuchal rigidity, or vertebral point tenderness. No Meningismus. Chest/axilla: Normal chest wall appearance and motion. Nontender with no deformity. No lesions are appreciated. Cardiovascular: Regular rate and rhythm with a normal S1 and S2. No gallops, murmurs, or rubs. Normal PMI, no JVD. No pulse deficits. Respiratory: Lungs have equal breath sounds bilaterally, clear to auscultation and percussion. No rales, rhonchi or wheezes noted. No increased work of breathing, no retractions or nasal flaring. Abdomen/GI: Soft, non-tender, with normal bowel sounds. No distension or tympany. No guarding or rebound. No evidence of tenderness throughout. Back: No spinal tenderness. No costovertebral tenderness. Full range of motion. Neuro: Awake and alert, GCS 15, oriented to person, place, time, and situation. Cranial nerves II-XII grossly intact. Motor strength 5/5 in all extremities. Sensory grossly intact. Cerebellar exam normal. Normal gait. Psych: Awake, alert, with orientation to person, place and time. Behavior, mood, and affect are within normal limits. 09:34 Head/face: Noted is hematoma, that is moderate, of the left cheek, a laceration(s), that is deep, 2.5 cm(s), of the outer aspect of left eyebrow and face. 09:34 Musculoskeletal/extremity: Extremities: grossly normal except: noted in the dorsal aspect of left wrist and palmar aspect of left wrist: contusion, decreased ROM, deformity. 09:34 Skin: Appearance: normal except for affected area, injury, laceration(s), the wound is approximately 2.5 cm(s), with a depth of 1.5 cm(s), of the outer aspect of left eyebrow. Vital Signs: 08:10 BP 137 / 76; Pulse 84; Resp 16; Temp 98.3; Pulse Ox 100% on R/A; Weight 51.71 kg; hb Height 5 ft. 4 in. (162.56 cm); Pain 3/10; 09:13 BP 105 / 66; Pulse 78; Pulse Ox 100% on R/A; ap3 08:10 Body Mass Index 19.57 (51.71 kg, 162.56 cm) hb Laceration: 09:18 Wound Repair of 2.5cm ( 1in ) subcutaneous laceration to outer aspect of left eyebrow. snw Profuse bleeding noted.. Distal neuro/vascular/tendon intact. Anesthesia: Local anesthetic administered with 4 mls of 1% lidocaine w/ Epi. Wound prep: Moderate cleansing with hibiclenz by nurse. Skin closed with 1 5-0 chromic (fast abs) using running sutures and sterile technique. Dressed with Neosporin. Patient tolerated well. MDM: 08:07 Patient medically screened. snw 09:16 Data reviewed: vital signs, nurses notes, radiologic studies, plain films. Independent snw interpretation of the following test(s) in the Emergency Department X-Ray: My interpretation is closed distal radius (left) impaction fracture, possible pisiform fx and degenerative changes to c-spine without acute fx. Counseling: I had a detailed discussion with the patient and/or guardian regarding: the historical points, exam findings, and any diagnostic results supporting the discharge/admit diagnosis, radiology results, the need for outpatient follow up, for definitive care, to return to the emergency department if symptoms worsen or persist or if there are any questions or concerns that arise at home. Special discussion: Based on the history and exam findings, there is no indication for further emergent testing or inpatient evaluation. I discussed with the patient/guardian the need to see the orthopedic surgeon for further evaluation of the symptoms. I discussed with the patient/guardian the need to see the primary care provider for further evaluation of the symptoms. 08/24 08:15 Order name: Forearm Left XRAY; Complete Time: 09:20 snw 08/24 08:15 Order name: Chest Single View XRAY; Complete Time: 09:20 snw 08/24 08:15 Order name: C Spine Ap/Lat XRAY; Complete Time: 09:21 snw 08/24 09:21 Order name: INCENTIVE SPIROMETRY snw 08/24 08:15 Order name: Suture Tray Setup; Complete Time: 08:24 snw 08/24 09:20 Order name: Sugar Tong Forearm Splint; Complete Time: 10:23 snw 08/24 09:20 Order name: Sling; Complete Time: 10:23 snw Administered Medications: 08:21 Drug: Phenergan (promethazine) 25 mg Route: PO; kc6 09:16 Follow up: Response: No adverse reaction ap3 08:21 Drug: traMADol 50 mg Route: PO; kc6 09:16 Follow up: Response: No adverse reaction; Pain is decreased ap3 09:12 Drug: Lidocaine-Epinephrine -1%: (1:100,000) 1 vials {Note: by jared soriano.} Volume: 20 ap3 ml; Route: Infiltration; Disposition: 12:53 Co-signature as Attending Physician, Andreas Silva MD I reviewed the patient's care rt provided by the Advanced Practice Provider and agree with the diagnosis and treatment plan. Disposition Summary: 08/24/22 09:53 Discharge Ordered Location: Home snw Condition: Stable snw Diagnosis - Fall on same level from slipping, tripping and stumbling with subsequent striking snw against object - Unspecified injury of head, initial encounter snw - Laceration without foreign body of unspecified part of head snw - Fracture of lower end of radius snw - Pain in left wrist - +wrist bone fractures snw Followup: snw - With: Private Physician - When: 2 - 3 days - Reason: Recheck today's complaints, Continuance of care, Re-evaluation by your physician Followup: snw - With: Emergency Department - When: As needed - Reason: Worsening of condition Discharge Instructions: - Discharge Summary Sheet snw - Head Injury, Adult snw - Fall Prevention in the Home, Adult snw - Facial Laceration snw - RICE Therapy for Routine Care of Injuries snw - How to Use Cold Therapy, Xqpx-ur-Ngnl snw - Wrist Pain, Adult, Intz-tm-Jjve snw - Forearm Fracture Rehab-SportsMed snw Forms: - Medication Reconciliation Form snw - Thank You Letter snw - Antibiotic Education snw - Prescription Opioid Use snw Prescriptions: - Mobic 7.5 mg Oral Tablet - take 1 tablet by ORAL route once daily take with food; 20 tablet; Refills: 0, snw Product Selection Permitted - Tramadol 50 mg Oral Tablet - take 1 tablet by ORAL route every 8 hours as needed; 12 tablet; Refills: 0, snw Product Selection Permitted Signatures: Dispatcher [employer] EDJennifer Odonnell, ZOOLOGY PROFESSOR-C ZOOLOGY PROFESSOR-Csnw Mayuri Aragon RN RN hb Cathryn Rascon RN RN ap3 Marie Ramos RN RN kc6 Andreas Silva MD MD rt
--- NOTE | 2022-08-24 09:54 | ER ---
Nurse's Notes [facility] Name: Babita Connor Age: 67 yrs Sex: Female : 1955 Arrival Date: 08/24/2022 Time: 08:03 Bed 5 Private MD: Diagnosis: Fall on same level from slipping, tripping and stumbling with subsequent striking against object;Unspecified injury of head, initial encounter;Laceration without foreign body of unspecified part of head;Fracture of lower end of radius;Pain in left wrist-+wrist bone fractures Presentation: 08/24 08:10 Chief complaint: Tripped while running this morning, landed on left side and hit head hb on concrete. Denies LOC. Laceration noted to left eyebrow, c/o left wrist and sternal pain 10/05. Coronavirus screen: At this time, the client does not indicate any symptoms associated with coronavirus-19. Ebola Screen: No symptoms or risks identified at this time. Initial Sepsis Screen: Does the patient meet any 2 criteria? No. Patient's initial sepsis screen is negative. Does the patient have a suspected source of infection? No. Patient's initial sepsis screen is negative. Risk Assessment: Do you want to hurt yourself or someone else? Patient reports no desire to harm self or others. Onset of symptoms was August 24, 2022. 08:10 Method Of Arrival: Ambulatory hb 08:10 Acuity: NAYANA 4 hb Historical: - Allergies: 08:13 PENICILLINS; hb 08:13 Sulfa (Sulfonamide Antibiotics); hb - PMHx: 08:13 BREAST CA; covid +; depressive disorder; hb - Social history:: Smoking status: Patient denies any tobacco usage or history of. Screenin:26 [facility] ED Fall Risk Assessment (Adult) History of falling in the last 3 months, ap3 including since admission Yes- fall prone (multiple falls) (3 pts) Confusion or Disorientation No (0 pts) Intoxicated or Sedated No (0 pts) Impaired Gait Yes (1 pt) Mobility Assist Device Used No (0 pt) Altered Elimination No (0 pt) Score/Fall Risk Level 3 or more points = High Risk Oriented to surroundings, Maintained a safe environment, Educated pt \T\ family on fall prevention, incl call for assistance when getting out of bed, Assessed \T\ reinforced patient's understanding of fall precautions, Hourly rounding (assess needs \T\ fall precautionary measures) done, Placed fall mat w/ non beveled edge next to bed, Remained with patient while ambulating, Utilized family, sitter, or virtual loss prevention and safety manager as indicated. Abuse screen: Denies threats or abuse. Nutritional screening: No deficits noted. Tuberculosis screening: No symptoms or risk factors identified. Assessment: 08:24 General: Appears comfortable, Behavior is calm, cooperative. Pain: Complains of pain in ap3 left eye, left wrist Pain began suddenly, after fall. Neuro: Level of Consciousness is awake, alert, obeys commands, Oriented to person, place, time, situation, Speech is normal. Cardiovascular: Patient's skin is warm and dry. Respiratory: Airway is patent Respiratory effort is even, unlabored, Respiratory pattern is regular, symmetrical. 10:20 Reassessment: Patient is alert, oriented x 3, equal unlabored respirations, skin aa5 warm/dry/pink. Vital Signs: 08:10 BP 137 / 76; Pulse 84; Resp 16; Temp 98.3; Pulse Ox 100% on R/A; Weight 51.71 kg; hb Height 5 ft. 4 in. (162.56 cm); Pain 3/10; 09:13 BP 105 / 66; Pulse 78; Pulse Ox 100% on R/A; ap3 08:10 Body Mass Index 19.57 (51.71 kg, 162.56 cm) hb ED Course: 08:03 Patient arrived in ED. rg4 08:07 Jennifer [facility] FNP-C [facility] snw 08:07 Andreas Silva MD is Attending Physician. snw 08:13 Triage completed. hb 08:13 Arm band placed on. hb 08:23 Cathryn Rascon, DANYELL is Primary Nurse. ap3 08:27 Patient has correct armband on for positive identification. Bed in low position. Call ap3 light in reach. Side rails up X2. Adult w/ patient. Pulse ox on. NIBP on. Door closed. Noise minimized. Warm blanket given. 08:27 Irrigation of laceration on left eye irrigated with normal saline Hibiclens solution ap3 Patient tolerated well. 08:39 Forearm Left XRAY In Process Unspecified. EDMS 08:39 Chest Single View XRAY In Process Unspecified. EDMS 08:39 C Spine Ap/Lat XRAY In Process Unspecified. EDMS 10:15 Orthoglass splint: Sugar tong splint applied on left arm. Sling applied to left arm. aa5 10:20 No provider procedures requiring assistance completed. Patient did not have IV access aa5 during this emergency room visit. Administered Medications: 08:21 Drug: Phenergan (promethazine) 25 mg Route: PO; kc6 09:16 Follow up: Response: No adverse reaction ap3 08:21 Drug: traMADol 50 mg Route: PO; kc6 09:16 Follow up: Response: No adverse reaction; Pain is decreased ap3 09:12 Drug: Lidocaine-Epinephrine -1%: (1:100,000) 1 vials {Note: by jared soriano.} Volume: 20 ap3 ml; Route: Infiltration; Medication: 10:20 VIS not applicable for this client. aa5 Outcome: 09:53 Discharge ordered by MD. snw 10:20 Discharged to home via wheelchair, with significant other. aa5 10:20 Condition: stable 10:20 Discharge instructions given to patient, significant other, Instructed on discharge instructions, follow up and referral plans. medication usage, Demonstrated understanding of instructions, follow-up care, medications, Prescriptions given X 2. 10:23 Patient left the ED. aa5 Signatures: Dispatcher [employer] Jennifer Elder, SUPERVISOR MODEL MAKING-C SUPERVISOR MODEL MAKING-Michellew Bethany Saldaña, RN RN aa5 Mayuri Aragon RN Malissa Ulrich4 Cathryn Rascon RN RN ap3 Marie Ramos RN RN kc6
[2022-08-24 10:28] VITALS: TEMP 98.3; O2SAT 100
[2022-08-24 10:29] VITALS: BP 105/66
== END 2022-08-24 10:23 | disposition home or self-care (01) ==
LOC: ER 07:59
PROC: 0HQ1XZZ Repair Face Skin, External Approach (ICD-10-PCS; principal; 2022-08-24)
PROC: 2W3DX1Z Immobilization of Left Lower Arm using Splint (ICD-10-PCS; 2022-08-24)
DX: S01.81XA Laceration without foreign body of other part of head, initial encounter (principal); S52.502A Unspecified fracture of the lower end of left radius, initial encounter for closed fracture; S62.102A Fracture of unspecified carpal bone, left wrist, initial encounter for closed fracture; S09.90XA Unspecified injury of head, initial encounter; W01.10XA Fall on same level from slipping, tripping and stumbling with subsequent striking against unspecified object, initial encounter; Z85.3 Personal history of malignant neoplasm of breast; Z88.0 Allergy status to penicillin; Z88.2 Allergy status to sulfonamides
CPT/HCPCS: 71045; 72040; 73090; 99284; 12011; 29125; Q0169